=== PATIENT | male | born 1985 | race Caucasian/White ===

== ENCOUNTER 2017-04-10 20:32 | Inpatient (IN) | payer OTHER ==
[2017-04-10 23:16] VITALS: BMI 26.1
--- NOTE | 2017-04-10 23:47 | HP ---
Admission ROS [facility] - [place] [facility] Chief Complaint: I WANT TO GO TO REHAB Allergies/Adverse Reactions: Allergies Allergy/AdvReac Type Severity Reaction Status Date / Time Penicillins Allergy Verified 04/10/17 23:22 History of Present Illness: 31 YEARS OLD MALE WITH LONG HISTORY OF COCAINE NICOTINE DEPENDENCE HAS HIV AND DEPRESSION IS ADMITTED TO REHAB Exam Limitations: No Limitations - Ebola screening Have you traveled outside of the country in the last 21 days: No Have you had contact with anyone from an Ebola affected area: No Have you been sick,other than usual withdrawal symptoms: No Do you have a fever: No - Review of Systems Constitutional: Loss of Appetite, Unintentional Wgt. Loss, Unexplained wgt Loss EENT: reports: Dental Problems (MULTIPLE TEETH MISSING) Respiratory: reports: SOB with Exertion Cardiac: reports: No Symptoms Reported GI: reports: Constipated, Poor Appetite : reports: No Symptoms Reported Musculoskeletal: reports: Back Pain Integumentary: reports: No Symptoms Reported Neuro: reports: No Symptoms reported Endocrine: reports: No Symptoms Reported Hematology: reports: No Symptoms Reported Psychiatric: reports: Judgement Intact, Orientated x3, Anxious Other Systems: Reviewed and Negative Patient History - Patient Medical History Hx Anemia: No Hx Asthma: No Hx Chronic Obstructive Pulmonary Disease (COPD): Yes Hx Cancer: No Hx Cardiac Disorders: No Hx Congestive Heart Failure: No Hx Hypertension: No Hx Hypercholesterolemia: No Hx Pacemaker: No HX Cerebrovascular Accident: No Hx Seizures: No Hx Dementia: No Hx Diabetes: No Hx Gastrointestinal Disorders: No Hx Liver Disease: No Hx Genitourinary Disorders: No Hx Sexually Transmitted Disorders: No Hx Renal Disease (ESRD): No Hx Thyroid Disease: No Hx Human Immunodeficiency Virus (HIV): Yes (2013) Hx Hepatitis C: No Hx Depression: Yes Hx Suicide Attempt: No Hx Bipolar Disorder: No Hx Schizophrenia: No - Patient Surgical History Past Surgical History: Yes Hx Lung Surgery: No Hx Genitourinary Surgery: Yes (5 YEARS OLD) Hx Orthopedic Surgery: Yes (RIGHT KNEE ) Anesthesia Reaction: No - PPD History Previous Implant?: Yes Documented Results: Negative w/o proof Implanted On Prior [facility] Admission?: No PPD to be Administered?: Yes - Smoking Cessation Smoking history: Current every day smoker Have you smoked in the past 12 months: Yes Aproximately how many cigarettes per day: 5 Cigars Per Day: 0 Hx Chewing Tobacco Use: No Initiated information on smoking cessation: Yes 'Breaking Loose' booklet given: 04/10/17 - Substance & Tx. History Hx Alcohol Use: No Hx Substance Use: Yes Substance Use Type: Cocaine Hx Substance Use Treatment: Yes (2017) - Substances Abused Cocaine Route: Inhalation Frequency: Daily Amount used: 10 BAGS Age of first use: 17 Date of Last Use: 04/10/17 Family Disease History - Family Disease History Family Disease History: Other: Father (NO CONTACT) Admission Physical Exam [facility] - Vital Signs Vital Signs: Vital Signs - 24 hr 04/10/17 23:09 Temperature 96.4 F L Pulse Rate 96 H Respiratory 18 Rate Blood Pressure 125/82 - Physical General Appearance: Yes: No Apparent Distress, Appropriately Dressed, Thin HEENTM: Yes: Hearing grossly Normal, Normal ENT Inspection, Normocephalic, Normal Voice Respiratory: Yes: Chest Non-Tender, No Respiratory Distress, No Accessory Muscle Use, Expiration, Hyperresonant Neck: Yes: Supple, Trachea in good position Breast: Yes: Breasts Symetrical Cardiology: Yes: Regular Rhythm, S1, S2, Tachycardia Abdominal: Yes: Normal Bowel Sounds, Non Tender, Soft Genitourinary: Yes: Within Normal Limits Back: Yes: Normal Inspection Musculoskeletal: Yes: full range of Motion, Gait Steady Extremities: Yes: Normal Inspection, Normal Range of Motion, Non-Tender Neurological: Yes: Fully Oriented, Alert, Motor Strength 5/5, Normal Response, Depressed Affect Integumentary: Yes: Warm Lymphatic: Yes: Within Normal Limits - Diagnostic (1) Cocaine dependence, uncomplicated Current Visit: Yes Status: Acute (2) Nicotine dependence Current Visit: Yes Status: Acute Qualifiers: Nicotine product type: cigarettes Substance use status: in withdrawal Qualified Code(s): F17.213 - Nicotine dependence, cigarettes, with withdrawal (3) Weight loss Current Visit: Yes Status: Acute (4) HIV (human immunodeficiency virus infection) Current Visit: Yes Status: Chronic Comment: PATIENT DOES NOT HAVE HIS HIV MEDICATIONS WITH HIM UPON ADMISSION PATIENT AGREES TO CALL HIS PHARMACY FOR DELIVERY Cleared for Admission [facility] - Detox or Rehab [facility] Level of Care: Observation Bed Detox Regimen/Protocol: Not Applicable Claeared for Rehab Admission: Yes [facility] Breath Alcohol Content Breath Alcohol Content: 0 Urine Drug Screen - Results Drug Screen Negative: No Urine Drug Screen Results: WILL-Cocaine Inpatient Rehab Admission - Initial Determination Are CD services needed?: Yes Free of communicable disease: Yes Not in need of hospitalization: Yes - Rehab Admission Criteria Previous failed treatment: Yes Poor recovery environment: Yes Comorbidities: Yes Lacks judgement: No Patient is meeting Inpatient Rehab admission criteria:: Yes
[2017-04-10] MEDS ORDERED: LOPERAMIDE HCL 2 MG CAPSULE PO PRN (23:56)
[2017-04-10] MEDS ORDERED: NICOTINE POLACRILEX 2 MG GUM BC PRN (23:56)
[2017-04-10] MEDS ORDERED: IBUPROFEN 400 MG TABLET (FP) PO PRN (23:56)
[2017-04-10] MEDS ORDERED: MAG HYDROX/AL HYDROX/SIMETH 30 ML UNIT-DOSE CUP PO PRN (23:56)
[2017-04-10] MEDS ORDERED: MAGNESIUM CITRATE 300 ML BOTTLE PO PRN (23:56)
[2017-04-10] MEDS ORDERED: MENTHOL/PHENOL 1 EACH UD MM PRN (23:56)
[2017-04-10] MEDS ORDERED: ACETAMINOPHEN 325 MG TABLET (FP) PO PRN (23:56)
[2017-04-10] MEDS ORDERED: P-EPHED 60MG/TRIPROLIDI 2.5MG TABLET PO PRN (23:56)
[2017-04-10] MEDS ORDERED: guaiFENesin/D-METHORPHAN HB 10 ML UNIT-DOSE CUPS PO PRN (23:56)
[2017-04-10] MEDS ORDERED: MAGNESIUM HYDROX 2400MG/30ML ORAL SUSPENSION 30 ML CUP PO PRN (23:56)
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
[2017-04-11] MEDS ORDERED: PATIENT'S OWN MEDICATION (NON-FORMULARY) (Dolutegravir Sodium 50 MG) PO SCH (10:00)
[2017-04-11] MEDS: EMTRICITABINE 200MG/TENOFOVIR 300MG PO SCH (10:46)
[2017-04-11] MEDS: DOLUTEGRAVIR SODIUM 50 MG TABLET PO SCH (10:46)
[2017-04-11] MEDS: PRENATAL VITAMINS W/ FOLIC ACID TABLET (FP) PO SCH (10:46)
[2017-04-11] MEDS: NICOTINE 14 MG/24 HOURS TOPICAL PATCH TD SCH (10:47)
[2017-04-11 12:29] LABS: HEMOGLOBIN 14.4 GM/dL (11.7-16.9); MCH 31.4 pg (25.7-33.7); MCHC 32.6 g/dl (32.0-35.9); MEAN CELL VOLUME 96.3 fl (80-96); PLATELET COUNT 192 K/MM3 (134-434); RBC 4.57 M/mm3 (4.00-5.60); RDW 13.7 % (11.9-15.9)
[2017-04-11 12:36] LABS: ALBUMIN 3.3 g/dl (3.4-5.0); ANION GAP 7 (8-16); BILIRUBIN,TOTAL 0.4 mg/dL (0.2-1.0); BLOOD UREA NITROGEN 14 mg/dL (7-18); CALCIUM 7.9 mg/dL (8.5-10.1); CHLORIDE 108 mmol/L (98-107); CO2 26 mmol/L (21-32); CREATININE 0.8 mg/dL (0.7-1.3); GLUCOSE,RANDOM 112 mg/dL (74-106); POTASSIUM 4.2 mmol/L (3.5-5.1); SGOT/AST 10 U/L (15-37); SGPT/ALT 22 U/L (12-78); SODIUM 141 mmol/L (136-145); TOT PROT 6.3 g/dl (6.4-8.2)
[2017-04-11 12:37] LABS: ALK PHOS 78 U/L (45-117)
--- NOTE | 2017-04-11 13:32 | EKG ---
Test Reason : Blood Pressure : / mmHG Vent. Rate : 077 BPM Atrial Rate : 077 BPM P-R Int : 154 ms QRS Dur : 084 ms QT Int : 380 ms P-R-T Axes : 069 067 057 degrees QTc Int : 430 ms NORMAL SINUS RHYTHM NORMAL ECG NO PREVIOUS ECGS AVAILABLE Confirmed by JT ROCK, PAVITHRA ([id number]) on 04/11/2017 1:32:11 PM Referred By: Confirmed By:PAVITHRA WATERS MD
[2017-04-11 18:50] LABS: URINE APPEARANCE CLOUDY; URINE BILIRUBIN NEGATIVE (NEGATIVE); URINE BLOOD NEGATIVE (NEGATIVE); URINE COLOR YELLOW; URINE GLUCOSE (UA) NEGATIVE (NEGATIVE); URINE KETONE NEGATIVE (NEGATIVE); URINE LEUK ESTERASE NEGATIVE (NEGATIVE); URINE NITRITE NEGATIVE (NEGATIVE); URINE PROTEIN NEGATIVE (NEGATIVE); URINE UROBILINOGEN NEGATIVE mg/dL (0.2-1.0)
[2017-04-11] MEDS: THIAMINE HCL 100 MG TABLET (FP) PO SCH (22:11)
[2017-04-12] MEDS: NICOTINE 14 MG/24 HOURS TOPICAL PATCH TD SCH (10:37)
[2017-04-12] MEDS: PRENATAL VITAMINS W/ FOLIC ACID TABLET (FP) PO SCH (10:37)
[2017-04-12] MEDS: SERTRALINE HCL 50 MG TABLET (FP) PO SCH (10:37)
[2017-04-12] MEDS: DOLUTEGRAVIR SODIUM 50 MG TABLET PO SCH (10:37)
[2017-04-12] MEDS: EMTRICITABINE 200MG/TENOFOVIR 300MG PO SCH (10:38)
--- NOTE | 2017-04-12 18:01 | PN ---
[facility] Progress Note Note: was called by nurse due to the patient c/o anxiety,vistaril 50 mg po q4hs ordered
[2017-04-12] MEDS ORDERED: hydrOXYzine PAMOATE 50 MG CAPSULE (FP) PO PRN (18:02)
[2017-04-12] MEDS: hydrOXYzine PAMOATE 50 MG CAPSULE (FP) PO PRN (18:09)
[2017-04-12] MEDS: THIAMINE HCL 100 MG TABLET (FP) PO SCH (22:08)
[2017-04-13] MEDS: EMTRICITABINE 200MG/TENOFOVIR 300MG PO SCH (10:13)
[2017-04-13] MEDS: DOLUTEGRAVIR SODIUM 50 MG TABLET PO SCH (10:13)
[2017-04-13] MEDS: PRENATAL VITAMINS W/ FOLIC ACID TABLET (FP) PO SCH (10:13)
[2017-04-13] MEDS: SERTRALINE HCL 50 MG TABLET (FP) PO SCH (11:13)
[2017-04-13] MEDS: hydrOXYzine PAMOATE 50 MG CAPSULE (FP) PO PRN ×2 (11:15→22:12)
[2017-04-13] MEDS: NICOTINE 14 MG/24 HOURS TOPICAL PATCH TD SCH (11:18)
[2017-04-13] MEDS: THIAMINE HCL 100 MG TABLET (FP) PO SCH (22:12)
[2017-04-14] MEDS: EMTRICITABINE 200MG/TENOFOVIR 300MG PO SCH (10:23)
[2017-04-14] MEDS: DOLUTEGRAVIR SODIUM 50 MG TABLET PO SCH (10:23)
[2017-04-14] MEDS: NICOTINE 14 MG/24 HOURS TOPICAL PATCH TD SCH (10:23)
[2017-04-14] MEDS: PRENATAL VITAMINS W/ FOLIC ACID TABLET (FP) PO SCH (10:23)
[2017-04-14] MEDS: hydrOXYzine PAMOATE 50 MG CAPSULE (FP) PO PRN ×2 (10:25→21:04)
[2017-04-14] MEDS: SERTRALINE HCL 50 MG TABLET (FP) PO SCH (10:51)
[2017-04-14] MEDS: THIAMINE HCL 100 MG TABLET (FP) PO SCH (21:04)
[2017-04-15] MEDS: SERTRALINE HCL 50 MG TABLET (FP) PO SCH (10:16)
[2017-04-15] MEDS: DOLUTEGRAVIR SODIUM 50 MG TABLET PO SCH (10:16)
[2017-04-15] MEDS: EMTRICITABINE 200MG/TENOFOVIR 300MG PO SCH (10:16)
[2017-04-15] MEDS: PRENATAL VITAMINS W/ FOLIC ACID TABLET (FP) PO SCH (10:16)
[2017-04-15] MEDS: hydrOXYzine PAMOATE 50 MG CAPSULE (FP) PO PRN ×2 (10:17→21:20)
[2017-04-15] MEDS: NICOTINE 14 MG/24 HOURS TOPICAL PATCH TD SCH (10:17)
[2017-04-15] MEDS: THIAMINE HCL 100 MG TABLET (FP) PO SCH (21:20)
[2017-04-16] MEDS: NICOTINE 14 MG/24 HOURS TOPICAL PATCH TD SCH (10:15)
[2017-04-16] MEDS: SERTRALINE HCL 50 MG TABLET (FP) PO SCH (10:15)
[2017-04-16] MEDS: PRENATAL VITAMINS W/ FOLIC ACID TABLET (FP) PO SCH (10:16)
[2017-04-16] MEDS: EMTRICITABINE 200MG/TENOFOVIR 300MG PO SCH (10:16)
[2017-04-16] MEDS: DOLUTEGRAVIR SODIUM 50 MG TABLET PO SCH (10:16)
[2017-04-16] MEDS: hydrOXYzine PAMOATE 50 MG CAPSULE (FP) PO PRN ×2 (10:17→21:35)
[2017-04-16] MEDS: SELENIUM SULFIDE 2.5% LOTION 4 OZ. TP SCH (16:30)
[2017-04-16] MEDS: THIAMINE HCL 100 MG TABLET (FP) PO SCH (21:35)
[2017-04-17] MEDS: PRENATAL VITAMINS W/ FOLIC ACID TABLET (FP) PO SCH (10:32)
[2017-04-17] MEDS: SERTRALINE HCL 50 MG TABLET (FP) PO SCH (10:32)
[2017-04-17] MEDS: SELENIUM SULFIDE 2.5% LOTION 4 OZ. TP SCH (10:33)
[2017-04-17] MEDS: DOLUTEGRAVIR SODIUM 50 MG TABLET PO SCH (10:33)
[2017-04-17] MEDS: NICOTINE 14 MG/24 HOURS TOPICAL PATCH TD SCH (10:34)
[2017-04-17] MEDS: EMTRICITABINE 200MG/TENOFOVIR 300MG PO SCH (10:35)
[2017-04-17] MEDS: THIAMINE HCL 100 MG TABLET (FP) PO SCH (22:12)
[2017-04-17] MEDS: hydrOXYzine PAMOATE 50 MG CAPSULE (FP) PO PRN (22:13)
[2017-04-18] MEDS ORDERED: PT OWN MED DRAWER 7, Y5N ONE ×2 (07:34→10:21)
[2017-04-18] MEDS: SERTRALINE HCL 50 MG TABLET (FP) PO SCH (10:20)
[2017-04-18] MEDS: SELENIUM SULFIDE 2.5% LOTION 4 OZ. TP SCH (10:20)
[2017-04-18] MEDS: PRENATAL VITAMINS W/ FOLIC ACID TABLET (FP) PO SCH (10:20)
[2017-04-18] MEDS: NICOTINE 14 MG/24 HOURS TOPICAL PATCH TD SCH (10:20)
[2017-04-18] MEDS: EMTRICITABINE 200MG/TENOFOVIR 300MG PO SCH (10:21)
[2017-04-18] MEDS: DOLUTEGRAVIR SODIUM 50 MG TABLET PO SCH (10:21)
[2017-04-18] MEDS: hydrOXYzine PAMOATE 50 MG CAPSULE (FP) PO PRN ×2 (10:24→21:14)
[2017-04-18] MEDS: CLOTRIMAZOLE/BETAMET DIPROP TOPICAL CREAM 45 GM TUBE TP SCH (21:14)
[2017-04-18] MEDS: THIAMINE HCL 100 MG TABLET (FP) PO SCH (21:14)
[2017-04-19] MEDS ORDERED: PT OWN MED DRAWER 7, Y5N ONE ×2 (08:41→09:05)
[2017-04-19] MEDS: SERTRALINE HCL 50 MG TABLET (FP) PO SCH (10:25)
[2017-04-19] MEDS: PRENATAL VITAMINS W/ FOLIC ACID TABLET (FP) PO SCH (10:25)
[2017-04-19] MEDS: DOLUTEGRAVIR SODIUM 50 MG TABLET PO SCH (10:26)
[2017-04-19] MEDS: EMTRICITABINE 200MG/TENOFOVIR 300MG PO SCH (10:26)
[2017-04-19] MEDS: hydrOXYzine PAMOATE 50 MG CAPSULE (FP) PO PRN ×2 (10:26→21:33)
[2017-04-19] MEDS: SELENIUM SULFIDE 2.5% LOTION 4 OZ. TP SCH (10:27)
[2017-04-19] MEDS: NICOTINE 14 MG/24 HOURS TOPICAL PATCH TD SCH (10:28)
[2017-04-19] MEDS: CLOTRIMAZOLE/BETAMET DIPROP TOPICAL CREAM 45 GM TUBE TP SCH ×2 (10:28→21:33)
[2017-04-19] MEDS: THIAMINE HCL 100 MG TABLET (FP) PO SCH (21:33)
[2017-04-20] MEDS: PRENATAL VITAMINS W/ FOLIC ACID TABLET (FP) PO SCH (10:14)
[2017-04-20] MEDS: SERTRALINE HCL 50 MG TABLET (FP) PO SCH (10:14)
[2017-04-20] MEDS: hydrOXYzine PAMOATE 50 MG CAPSULE (FP) PO PRN ×2 (10:16→21:28)
[2017-04-20] MEDS: DOLUTEGRAVIR SODIUM 50 MG TABLET PO SCH (10:17)
[2017-04-20] MEDS: EMTRICITABINE 200MG/TENOFOVIR 300MG PO SCH (10:17)
[2017-04-20] MEDS: SELENIUM SULFIDE 2.5% LOTION 4 OZ. TP SCH (10:18)
[2017-04-20] MEDS: NICOTINE 14 MG/24 HOURS TOPICAL PATCH TD SCH (10:18)
[2017-04-20] MEDS ORDERED: PT OWN MED DRAWER 7, Y5N ONE (10:18)
[2017-04-20] MEDS: CLOTRIMAZOLE/BETAMET DIPROP TOPICAL CREAM 45 GM TUBE TP SCH ×2 (10:19→22:21)
[2017-04-20] MEDS ORDERED: CLOTRIMAZOLE/BETAMET DIPROP 15 GM TUBE TP SCH (12:30)
[2017-04-20] MEDS: THIAMINE HCL 100 MG TABLET (FP) PO SCH (21:28)
[2017-04-21] MEDS ORDERED: PT OWN MED DRAWER 7, Y5N ONE ×3 (07:00→10:16)
[2017-04-21] MEDS: NICOTINE 14 MG/24 HOURS TOPICAL PATCH TD SCH (10:13)
[2017-04-21] MEDS: PRENATAL VITAMINS W/ FOLIC ACID TABLET (FP) PO SCH (10:13)
[2017-04-21] MEDS: EMTRICITABINE 200MG/TENOFOVIR 300MG PO SCH (10:13)
[2017-04-21] MEDS: DOLUTEGRAVIR SODIUM 50 MG TABLET PO SCH (10:13)
[2017-04-21] MEDS: SERTRALINE HCL 50 MG TABLET (FP) PO SCH (10:13)
[2017-04-21] MEDS: CLOTRIMAZOLE/BETAMET DIPROP TOPICAL CREAM 45 GM TUBE TP SCH ×2 (10:13→22:00)
[2017-04-21] MEDS: hydrOXYzine PAMOATE 50 MG CAPSULE (FP) PO PRN ×2 (10:15→21:26)
[2017-04-21] MEDS: SELENIUM SULFIDE 2.5% LOTION 4 OZ. TP SCH (10:15)
[2017-04-21] MEDS: THIAMINE HCL 100 MG TABLET (FP) PO SCH (21:26)
[2017-04-22] MEDS ORDERED: PT OWN MED DRAWER 7, Y5N ONE ×2 (08:01→08:50)
[2017-04-22] MEDS: CLOTRIMAZOLE/BETAMET DIPROP TOPICAL CREAM 45 GM TUBE TP SCH ×2 (10:00→22:08)
[2017-04-22] MEDS: SELENIUM SULFIDE 2.5% LOTION 4 OZ. TP SCH (10:00)
[2017-04-22] MEDS: PRENATAL VITAMINS W/ FOLIC ACID TABLET (FP) PO SCH (10:00)
[2017-04-22] MEDS: SERTRALINE HCL 50 MG TABLET (FP) PO SCH (10:00)
[2017-04-22] MEDS: DOLUTEGRAVIR SODIUM 50 MG TABLET PO SCH (10:01)
[2017-04-22] MEDS: EMTRICITABINE 200MG/TENOFOVIR 300MG PO SCH (10:01)
[2017-04-22] MEDS: NICOTINE 14 MG/24 HOURS TOPICAL PATCH TD SCH (10:01)
[2017-04-22] MEDS: hydrOXYzine PAMOATE 50 MG CAPSULE (FP) PO PRN ×2 (15:42→21:29)
[2017-04-22] MEDS: THIAMINE HCL 100 MG TABLET (FP) PO SCH (21:29)
[2017-04-23 07:04] VITALS: TEMP 97.4
[2017-04-23] MEDS: DOLUTEGRAVIR SODIUM 50 MG TABLET PO SCH (09:44)
[2017-04-23] MEDS: SERTRALINE HCL 50 MG TABLET (FP) PO SCH (09:44)
[2017-04-23] MEDS: CLOTRIMAZOLE/BETAMET DIPROP TOPICAL CREAM 45 GM TUBE TP SCH (09:44)
[2017-04-23] MEDS: PRENATAL VITAMINS W/ FOLIC ACID TABLET (FP) PO SCH (09:44)
[2017-04-23] MEDS: SELENIUM SULFIDE 2.5% LOTION 4 OZ. TP SCH (09:45)
[2017-04-23] MEDS: EMTRICITABINE 200MG/TENOFOVIR 300MG PO SCH (09:45)
[2017-04-23] MEDS: NICOTINE 14 MG/24 HOURS TOPICAL PATCH TD SCH (09:45)
[2017-04-23] MEDS: hydrOXYzine PAMOATE 50 MG CAPSULE (FP) PO PRN (11:33)
[2017-04-24 06:46] VITALS: BP 134/69; PULSE 71
--- NOTE | 2017-04-24 09:52 | PN ---
Psychiatric Progress Note Vital Signs: Vital Signs Period Temp Pulse Resp BP Sys/Simpson Pulse Ox Last 24 Hr 97.4 F 71 18-18 134/69 Date of Session: 04/24/17 Chief Complaint:: Discharge Note HPI: Patient addressing Cocaine Dependence comorbid with Nicotine Dependence and Substance-induced Mood Disorder Current Medications: Active Medications Generic Name Dose Route Start Last Admin Trade Name Freq PRN Reason Stop Dose Admin Acetaminophen 650 mg 04/10/17 23:56 Tylenol - PO Q4H PRN PAIN Al Hydroxide/Mg Hydroxide 30 ml 04/10/17 23:56 04/16/17 23:54 Mylanta Oral Suspension - PO 30 ml Q6H PRN Administration DYSPEPSIA Clotrimazole 1 applic 04/18/17 22:00 04/23/17 09:44 Lotrisone Cream (Large Tube) - TP 1 applic BID GUILLERMINA Administration Emtricitabine/Tenofovir 1 tab 04/11/17 10:00 04/23/17 09:45 Truvada PO 1 tab DAILY GUILLERMINA Administration Eucalyptus/Menthol/Phenol/Sorbitol 1 each 04/10/17 23:56 Cepastat Lozenge - MM Q4H PRN SORE THROAT Guaifenesin 10 ml 04/10/17 23:56 Robitussin Dm - PO Q6H PRN COUGH Hydroxyzine Pamoate 50 mg 04/12/17 18:03 04/23/17 11:33 Vistaril - PO 50 mg Q4H PRN Administration ANXIETY Ibuprofen 400 mg 04/10/17 23:56 Motrin - PO Q6H PRN SEVERE PAIN Loperamide HCl 4 mg 04/10/17 23:56 Imodium - PO Q6H PRN DIARRHEA Magnesium Citrate 300 ml 04/10/17 23:56 Citroma - PO Q48H PRN CONSTIPATION Magnesium Hydroxide 30 ml 04/10/17 23:56 Milk Of Magnesia - PO DAILY PRN CONSTIPATION Nicotine 14 mg 04/11/17 10:00 04/23/17 09:45 Nicoderm Patch - TD Not Given DAILY GUILLERMINA Nicotine Polacrilex 2 mg 04/10/17 23:56 Nicorette Gum - BC Q2H PRN NICOTINE REPLACEMENT RX Multivit/Folic Acid/Iron 1 tab 04/11/17 10:00 04/23/17 09:44 Vitamins ([facility]) - PO 1 tab DAILY GUILLERMINA Administration Pseudoephedrine/Triprolidine 1 combo 04/10/17 23:56 Actifed - PO TID PRN NASAL CONGESTION Sertraline HCl 50 mg 04/12/17 10:00 04/23/17 09:44 Zoloft - PO 50 mg DAILY GUILLERMINA Administration Thiamine HCl 100 mg 04/11/17 22:00 04/22/17 21:29 Vitamin B1 - PO 100 mg HS GUILLERMINA Administration Current Side Effect: No Lab tests ordered: Yes Lab tests reviewed: Yes Provider note:: Patient has completed this program today. He has met his treatment goals and will continue to address his issues in [place] [facility] 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 He responded well to Zoloft 50 mg po daily. Script for 30 day supply of medication is electronically transmitted to [facility] at [address] [place] [address]. He is stable for discharge today Total face to face time:: 35 Mental Status Exam - Mental Status Exam Alert and Oriented to: Time, Place, Person Cognitive Function: Fair Patient Appearance: Well Groomed Mood: Hopeful, Euthymic Affect: Appropriate Patient Behavior: Cooperative Speech Pattern: Clear Voice Loudness: Normal Thought Process: Intact, Goal Oriented Thought Disorder: Not Present Hallucinations: Denies Suicidal Ideation: Denies Homicidal Ideation: Denies Insight/Judgement: Fair Sleep: Fair Appetite: Good Muscle strength/Tone: Normal Gait/Station: Normal Psychiatric Treatment Plan - Problem List (1) Cocaine dependence Current Visit: Yes (2) Nicotine dependence Current Visit: Yes Qualifiers: Nicotine product type: cigarettes Substance use status: in withdrawal Qualified Code(s): F17.213 - Nicotine dependence, cigarettes, with withdrawal (3) Substance induced mood disorder Current Visit: Yes (4) Bipolar II disorder Current Visit: Yes (5) HIV (human immunodeficiency virus infection) Current Visit: Yes Comment: PATIENT DOES NOT HAVE HIS HIV MEDICATIONS WITH HIM UPON ADMISSION PATIENT AGREES TO CALL HIS PHARMACY FOR DELIVERY Initial treatment plan: Patient is discharged today and referred [place] [facility] [place]
[2017-04-24] MEDS: PRENATAL VITAMINS W/ FOLIC ACID TABLET (FP) PO SCH (09:55)
[2017-04-24] MEDS: EMTRICITABINE 200MG/TENOFOVIR 300MG PO SCH (09:55)
[2017-04-24] MEDS: DOLUTEGRAVIR SODIUM 50 MG TABLET PO SCH (09:55)
[2017-04-24] MEDS: SERTRALINE HCL 50 MG TABLET (FP) PO SCH (09:55)
[2017-04-24] MEDS: NICOTINE 14 MG/24 HOURS TOPICAL PATCH TD SCH (09:58)
[2017-04-24] MEDS: CLOTRIMAZOLE/BETAMET DIPROP TOPICAL CREAM 45 GM TUBE TP SCH (09:58)
== END 2017-04-24 10:10 | disposition home or self-care (01) | DRG 772 ==
LOC: YASAS 20:32 → Y3W 23:08
PROVIDERS: ADMIT Psychiatry & Neurology Psychiatry; ATTEND Psychiatry & Neurology Psychiatry
PROC: HZ42ZZZ Group Counseling for Substance Abuse Treatment, Cognitive-Behavioral (ICD-10-PCS; principal; 2017-04-10)
DX: F14.20 Cocaine dependence, uncomplicated (principal); F17.213 Nicotine dependence, cigarettes, with withdrawal; F19.24 Other psychoactive substance dependence with psychoactive substance-induced mood disorder; F31.81 Bipolar II disorder; Z21 Asymptomatic human immunodeficiency virus [HIV] infection status; R00.0 Tachycardia, unspecified; J44.9 Chronic obstructive pulmonary disease, unspecified; Z88.0 Allergy status to penicillin; Z87.898 Personal history of other specified conditions
CPT/HCPCS: 36415; 80053; 81003; 85027; 86593; 93005; 93010

== ENCOUNTER 2017-05-17 06:30 | Emergency (ER) | payer OTHER ==
[2017-05-17 06:38] VITALS: BP 127/77; PULSE 93; TEMP 98.6; BMI 26.6
--- NOTE | 2017-05-17 07:33 | PDOC ---
Attending Attestation - Resident Resident Name: BonitaSammi - ED Attending Attestation I have performed the following: I have examined & evaluated the patient, The case was reviewed & discussed with the resident, I agree w/resident's findings & plan, Exceptions are as noted - HPI HPI: 05/17/17 08:12 31 yo. M hx HIV (CD4 > 1000 in 2017, on Trimeq) and PSA presents to our ED requesting admission to detox from etoh. Pt was admitted at [facility] this morning, left at some point, drank 1 pint of vodka and snorted cocaine, then attempted to return this morning. Pt was belligerent per [facility] staff and thus he was not allowed to enter [facility] and EMS brought him here. Pt currently denies cp, sob, f/c, n/v/d, abd pain, weakness/numbness. He states " i want to quit this stuff." - Physicial Exam PE: 05/17/17 08:15 GENERAL: Awake, intoxicated, no acute distress HEAD: No signs of trauma EYES: PERRLA, EOMI, sclera anicteric, conjunctiva clear NECK: Normal ROM, supple, no lymphadenopathy, JVD, or masses LUNGS: Breath sounds equal, clear to auscultation bilaterally. No wheezes, and no crackles HEART: Regular rate and rhythm, normal S1 and S2, no murmurs, rubs or gallops ABDOMEN: Soft, nontender, normoactive bowel sounds. No guarding, no rebound. No masses EXTREMITIES: Normal range of motion, no edema. No clubbing or cyanosis. No cords, erythema, or tenderness. 2+ peripheral pulses NEUROLOGICAL: slurred speech, cranial nerves grossly intact SKIN: Warm, Dry, normal turgor, no rashes or lesions noted. - Medical Decision Making 05/17/17 08:16 Pt requests detox from etoh/cocaine. No longer accepted at [facility], brought here [facility] was called, stated to send pt over but needs medical clearance Will obtain labs, if pt MC, and more clinically sober, will DC to [facility] 05/17/17 11:51 Patient's now clinically sober and ambulating in the ED with a steady gait. Patient is upset that we will not be able to arrange transport for him to [facility] and shouting at staff stating "I have medicaid." Security called to the bedside. Discussed with our major case detective Lydia regarding transport, we will not be able to arrange transportation to the [place] for detox, as patient has resources to get to the [place] on his own. Explained the latter to the patient who requests dc home. Pt hemodynamically and clinically stable for DC. I discussed the physical exam findings, ancillary test results and final diagnoses with the patient. I answered all of the patient's questions. The patient was satisfied with the care received and felt comfortable with the discharge plan and treatment plan. The patient will call their primary care physician within 24 hours to arrange follow-up and will return to the Emergency Department with any new, persistent or worsening symptoms.
--- NOTE | 2017-05-17 07:45 | PDOC ---
History of Present Illness - General Chief Complaint: Substance Abuse Stated Complaint: SUBSTANCE ABUSE Time Seen by Provider: 05/17/17 07:07 History Source: Patient - History of Present Illness Initial Comments: 05/17/17 07:32 31 y.o. male PMH of HIV (CD4 > 1000 in 2017, on Trimeq) and Substance Abuse presents to our ED this morning requesting admission to Detox @ [facility]. Patient states he drank 1 pint of vodka this morning and last used cocaine yesterday afternoon. Patient denies any h/o DT's and states he has been drinking for the past 15 years. Patient receives his primary and HIV care in the [facility] Allergy: Penicillin Surgery: Exploratory Laparotomy @ age 5 Past History - Past Medical History Allergies/Adverse Reactions: Allergies Allergy/AdvReac Type Severity Reaction Status Date / Time Penicillins Allergy Verified 05/17/17 06:36 Home Medications: Ambulatory Orders Dolutegravir Sodium [Tivicay] 50 mg PO DAILY #30 tablet 04/24/17 Emtricitabine/Tenofovir [Truvada -] 1 tab PO DAILY #30 tablet 04/24/17 Sertraline HCl [Zoloft -] 50 mg PO DAILY #30 tablet 04/24/17 Anemia: No Asthma: No Cancer: No Cardiac Disorders: No CVA: No COPD: No CHF: No Dementia: No Diabetes: No GI Disorders: No Disorders: No HTN: No Hypercholesterolemia: No Kidney Stones: No Liver Disease: No Seizures: No Thyroid Disease: No - Surgical History Abdominal Surgery: No Appendectomy: No Cardiac Surgery: No Cholecystectomy: No Lung Surgery: No Neurologic Surgery: No Orthopedic Surgery: Yes (RIGHT KNEE ) - Reproductive History Testicular Surgery: No - Suicide/Smoking/Psychosocial Hx Smoking History: Current every day smoker Have you smoked in the past 12 months: Yes Number of Cigarettes Smoked Daily: 5 Cigars Per Day: 0 Information on smoking cessation initiated: No 'Breaking Loose' booklet given: 05/16/17 Hx Alcohol Use: Yes Drug/Substance Use Hx: Yes Substance Use Type: Alcohol, Cocaine Hx Substance [facility] Review of Systems - Review of Systems Constitutional: No: Chills, Fever HEENTM: No: Recent change in vision Respiratory: No: Shortness of Breath Cardiac (ROS): No: Chest Pain ABD/GI: No: Constipated, Diarrhea, Nausea, Vomiting *Physical Exam - Vital Signs Last Vital Signs Temp Pulse Resp BP Pulse Ox 98.6 F 93 H 14 127/77 98 05/17/17 06:36 05/17/17 06:36 05/17/17 06:36 05/17/17 06:36 05/17/17 06:36 - Physical Exam Comments: 05/17/17 18:36 GENERAL: Awake, intoxicated, no acute distress HEAD: No signs of trauma EYES: EOMI, sclera anicteric, B/L conjunctival injection NECK: Normal ROM, supple, no lymphadenopathy, JVD, or masses LUNGS: Breath sounds equal, clear to auscultation bilaterally. No wheezes, and no crackles HEART: Regular rate and rhythm, normal S1 and S2, no murmurs, rubs or gallops ABDOMEN: Soft, nontender, normoactive bowel sounds. No guarding, no rebound. No masses EXTREMITIES: Normal range of motion, no edema. No clubbing or cyanosis. NEUROLOGICAL: slurred speech, cranial nerves grossly intact, non-ataxic gait SKIN: Warm, Dry, normal turgor, no rashes or lesions noted. ED Treatment Course - LABORATORY CBC & Chemistry Diagram: 05/17/17 07:40 05/17/17 07:40 - RADIOLOGY Radiology Studies Ordered: Category Date Time Status CHEST PA & LAT [RAD] Stat Radiology 05/17/17 07:15 Ordered Medical Decision Making - Medical Decision Making 05/17/17 08:01 31 y.o. male with a PMH of HIV and Substance Abuse who presents seeking admission to alcohol detox program. On PE patient Spoke with Mike @ [facility] - patient was admitted yesterday to their facility however disappeared and then came back this a.m. seeking readmission. Patient became belligerent and is banned from [facility]. Will call [facility] for admission. CBC, CMP, Urine Toxicology, EKG, CXR pending. 05/17/17 08:06 Case d/w [facility] Inpatient Detoxification- patient can report to [address] [place] [address] for evaluation. 05/17/17 09:34 CXR shows no infiltrate/consolidation or cardiomegaly. CBC shows no anemia, CMP negative for electrolyte derangement. Patient ambulatory, tolerating PO intake. Will discharge with copies of labs *DC/Admit/Observation/Transfer Diagnosis at time of Disposition: Substance abuse - Discharge Dispostion Disposition: HOME Condition at time of disposition: Good Admit: No - Referrals Referrals: ON STAFF,NOT [Primary Care Provider] - - Patient Instructions Additional Instructions: Please report to [facility], [address] [place] [address]. [place] [address] for evaluation. Return to the Emergency Department for any new/ worsening/concerning symptoms. - Post Discharge Activity
[2017-05-17 07:57] LABS: BASO % 0.7 % (0-2.0); EOS % 2.4 % (0-4.5); HEMATOCRIT 46.2 % (35.4-49); HEMOGLOBIN 15.6 GM/dL (11.7-16.9); LYMPH % 25.1 % (8-40); MCH 31.7 pg (25.7-33.7); MCHC 33.7 g/dl (32.0-35.9); MEAN CELL VOLUME 94.1 fl (80-96); MEAN PLT VOLUME 8.3 fl (7.5-11.1); NEUT % 62.8 % (42.8-82.8); PLATELET COUNT 241 K/MM3 (134-434); RDW 14.3 % (11.9-15.9)
[2017-05-17 08:37] LABS: ALBUMIN 4.1 g/dl (3.4-5.0); ALK PHOS 76 U/L (45-117); ANION GAP 8 (8-16); BILIRUBIN,TOTAL 0.2 mg/dL (0.2-1.0); BLOOD UREA NITROGEN 11 mg/dL (7-18); CALCIUM 8.5 mg/dL (8.5-10.1); CHLORIDE 106 mmol/L (98-107); CO2 29 mmol/L (21-32); CREATININE 0.7 mg/dL (0.7-1.3); GLUCOSE,RANDOM 116 mg/dL (74-106); POTASSIUM 3.9 mmol/L (3.5-5.1); SGOT/AST 13 U/L (15-37); SGPT/ALT 22 U/L (12-78); SODIUM 143 mmol/L (136-145); TOT PROT 7.4 g/dl (6.4-8.2)
[2017-05-17 10:29] LABS: COCAINE, UR POSITIVE ng/ml (CUTOFF=300); OPIATES, URI NEGATIVE ng/ml (CUTOFF=300); PHENCYCLIDINE,URINE NEGATIVE ng/ml (CUTOFF=25); URINE AMPHETAMINES NEGATIVE ng/ml (CUTOFF=500); URINE BARBITURATES NEGATIVE ng/ml (CUTOFF=200); URINE BENZODIAZEPINES POSITIVE ng/ml (CUTOFF=200)
[2017-05-17 10:30] LABS: METHADONE, UR NEGATIVE ng/ml (CUTOFF=300)
--- NOTE | 2017-05-17 15:34 | EKG ---
Test Reason : Blood Pressure : / mmHG Vent. Rate : 095 BPM Atrial Rate : 095 BPM P-R Int : 000 ms QRS Dur : 084 ms QT Int : 362 ms P-R-T Axes : 000 075 058 degrees QTc Int : 454 ms NORMAL SINUS RHYTHM WITH SINUS ARRHYTHMIA NORMAL ECG WHEN COMPARED WITH ECG OF 11-APR-2017 04:00, NO SIGNIFICANT CHANGE WAS FOUND Confirmed by DIVYA HARRINGTON MD ([id number]) on 05/17/2017 3:34:35 PM Referred By: Confirmed By:DIVYA HARRINGTON MD
== END 2017-05-17 10:18 | disposition home or self-care (01) ==
LOC: JER 06:30
DX: F10.10 Alcohol abuse, uncomplicated (principal); F14.10 Cocaine abuse, uncomplicated; F17.210 Nicotine dependence, cigarettes, uncomplicated; Z21 Asymptomatic human immunodeficiency virus [HIV] infection status
CPT/HCPCS: 36415; 71046-TC-FY; 80053; 80307; 85025; 93005; 93010; 99283-25

== ENCOUNTER 2017-06-10 09:42 | Inpatient (IN) | payer OTHER ==
[2017-06-10 11:05] VITALS: BMI 27.3
--- NOTE | 2017-06-10 12:32 | HP ---
CIWA Score - CIWA Score Nausea/Vomitin Muscle Tremors: 3 Anxiety: 3 Agitation: 3 Paroxysmal Sweats: 2 Orientation: 0-Oriented Tacttile Disturbances: 2-Mild Itch/Numbness/Burn Auditory Disturbances: 2-Mild Harshness/Frighten Visual Disturbances: 1-Very Mild Sensitivity Headache: 2-Mild CIWA-Ar Total Score: 21 Admission ROS BHS - HPI Chief Complaint: I NEED HELP TO STOP DRINKING ALCOHOL,COCAINE,MARIJUANA,METHAMPHETAMINE Allergies/Adverse Reactions: Allergies Allergy/AdvReac Type Severity Reaction Status Date / Time Penicillins Allergy Rash Verified 06/10/17 12:31 History of Present Illness: THIS 31 YEARS OLD MALE WITH ALCOHOL,COCAINE,MARIJUANA AND METHAMPHETAMINE DEPENDENCE,WITHDRAWAL SYMPTOM,SEEKING DETOX LAST DETOX 05/27 PROMEZA HISTORY OF HIV IN 2013 DEPRESSION NICOTINE DEPENDENCE LONGEST PERIOD OF SOBRIETY 1 YEAR - Ebola screening Have you traveled outside of the country in the last 21 days: No (N) Have you had contact with anyone from an Ebola affected area: No Have you been sick,other than usual withdrawal symptoms: No Do you have a fever: No - Review of Systems Constitutional: Loss of Appetite, Malaise, Night Sweats, Changes in sleep, Weakness, Unintentional Wgt. Loss EENT: reports: Nose Congestion Respiratory: reports: No Symptoms reported Cardiac: reports: No Symptoms Reported GI: reports: Diarrhea, Nausea, Poor Appetite, Vomiting, Abdominal cramping, Other (SURGERY FOR BLUNT TRAUMA OF ABDOMEN AT AGE OF 5 YEARS) : reports: No Symptoms Reported Musculoskeletal: reports: Back Pain, Muscle Pain Integumentary: reports: Dryness Neuro: reports: Headache, Tremors Endocrine: reports: No Symptoms Reported Hematology: reports: No Symptoms Reported, Other (HIV) Psychiatric: reports: No Sypmtoms Reported, Orientated x3, Anxious, Depressed Patient History - Patient Medical History Hx Anemia: No Hx Asthma: No Hx Chronic Obstructive Pulmonary Disease (COPD): No Hx Cancer: No Hx Cardiac Disorders: No Hx Congestive Heart Failure: No Hx Hypertension: No Hx Hypercholesterolemia: No Hx Pacemaker: No HX Cerebrovascular Accident: No Hx Seizures: No Hx Dementia: No Hx Diabetes: No Hx Gastrointestinal Disorders: No Hx Liver Disease: No Hx Genitourinary Disorders: No Hx Sexually Transmitted Disorders: Yes (HIV SINCE 2013) Hx Renal Disease (ESRD): No Hx Thyroid Disease: No Hx Human Immunodeficiency Virus (HIV): Yes (2013 SINCE ON MED) Hx Hepatitis C: No Hx Depression: Yes (ANXIETY) Hx Suicide Attempt: No Hx Bipolar Disorder: No Hx Schizophrenia: No Other Medical History: NO SUICIDAL,NO HOMICIDAL - Patient Surgical History Past Surgical History: Yes Hx Neurologic Surgery: No Hx Cataract Extraction: No Hx Cardiac Surgery: No Hx Lung Surgery: No Hx Breast Surgery: No Hx Breast Biopsy: No Hx Abdominal Surgery: No Hx Appendectomy: No Hx Cholecystectomy: No Hx Genitourinary Surgery: Yes (5 YEARS OLD) Hx Section: No Hx Orthopedic Surgery: Yes (RIGHT KNEE ) Other Surgical History: BLUNT TRAUMA OF ABDOMEN AT AGE OF 5 YEARS Anesthesia Reaction: No - PPD History Previous Implant?: Yes Date: 04/13/17 Results: 0 MM PPD to be Administered?: No - Smoking Cessation Smoking history: Current every day smoker Have you smoked in the past 12 months: Yes Aproximately how many cigarettes per day: 7 Cigars Per Day: 0 Hx Chewing Tobacco Use: No Initiated information on smoking cessation: Yes 'Breaking Loose' booklet given: 06/10/17 - Substance & Tx. History Hx Alcohol Use: Yes Hx Substance Use: Yes Substance Use Type: Alcohol, Cocaine, Marijuana - Substances Abused Crack Route: Smoking Frequency: Daily Amount used: $40 Age of first use: 17 Date of Last Use: 06/08/17 Cocaine Route: Inhalation Frequency: 1-2 times per week Amount used: 1gram Age of first use: 20 Date of Last Use: 06/03/17 Methamphetamine Route: Oral Frequency: 1-3 times last 30 days Amount used: $20 Age of first use: 16 Date of Last Use: 05/20/17 etoh Route: Oral Frequency: Daily Amount used: 1/4 vodka, 2Beer Age of first use: 10 Date of Last Use: 06/09/17 thc Route: Smoking Frequency: 3-6 times per week Amount used: $10 Age of first use: 12 Date of Last Use: 06/08/17 Family Disease History - Family Disease History Family Disease History: Other: Father (NO CONTACT) Admission Physical Exam BHS - Vital Signs Vital Signs: Vital Signs - 24 hr 06/10/17 11:02 Temperature 97.0 F L Pulse Rate 92 H Respiratory 20 Rate Blood Pressure 158/92 - Physical General Appearance: Yes: Moderate Distress, Tremorous, Irritable, Sweating, Anxious HEENTM: Yes: Normal ENT Inspection, WENDI, Pharynx Normal, Other (PSORIASIS OF SCALP) Respiratory: Yes: Lungs Clear, Normal Breath Sounds, No Respiratory Distress Neck: Yes: Within Normal Limits, Supple, Trachea in good position Breast: Yes: Within Normal Limits Cardiology: Yes: Within Normal Limits, Regular Rhythm, Regular Rate, S1, S2 Abdominal: Yes: Within Normal Limits, Normal Bowel Sounds, Non Tender, Flat, Soft, Surgical Scar Genitourinary: Yes: Within Normal Limits Back: Yes: Normal Inspection, Muscle Spasm Musculoskeletal: Yes: full range of Motion, Back pain, Muscle Pain Extremities: Yes: Within Normal Limits, Normal Range of Motion, Tremors Neurological: Yes: 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, Fully Oriented, Alert, Motor Strength 5/5 Integumentary: Yes: Dry Lymphatic: Yes: Within Normal Limits - Diagnostic (1) Alcohol dependence with uncomplicated withdrawal Current Visit: No Status: Acute (2) Cocaine dependence, uncomplicated Current Visit: No Status: Acute (3) Nicotine dependence Current Visit: No Status: Acute Qualifiers: Nicotine product type: cigarettes Substance use status: in withdrawal Qualified Code(s): F17.213 - Nicotine dependence, cigarettes, with withdrawal (4) Substance induced mood disorder Current Visit: No Status: Acute (5) Weight loss Current Visit: No Status: Acute (6) HIV (human immunodeficiency virus infection) Current Visit: No Status: Chronic Comment: PATIENT DOES NOT HAVE HIS HIV MEDICATIONS WITH HIM UPON ADMISSION PATIENT AGREES TO CALL HIS PHARMACY FOR DELIVERY (7) Bipolar II disorder Current Visit: No Status: Suspected (8) Methamphetamine abuse Current Visit: Yes Status: Acute Cleared for Admission [facility] - Detox or Rehab [facility] Level of Care: Medically Managed Detox Regimen/Protocol: Librium [facility] Breath Alcohol Content Breath Alcohol Content: 0 Urine Drug Screen - Results Drug Screen Negative: No Urine Drug Screen Results: THC-Marijuana, WILL-Cocaine, TCA-Tricyclic Antidepress
[2017-06-10] MEDS ORDERED: MAGNESIUM CITRATE 300 ML BOTTLE PO PRN (13:02)
[2017-06-10] MEDS ORDERED: P-EPHED 60MG/TRIPROLIDI 2.5MG TABLET PO PRN (13:02)
[2017-06-10] MEDS ORDERED: guaiFENesin/D-METHORPHAN HB 10 ML UNIT-DOSE CUPS PO PRN (13:02)
[2017-06-10] MEDS ORDERED: MAGNESIUM HYDROX 2400MG/30ML ORAL SUSPENSION 30 ML CUP PO PRN (13:02)
[2017-06-10] MEDS ORDERED: MENTHOL/PHENOL 1 EACH UD MM PRN (13:02)
[2017-06-10] MEDS ORDERED: NICOTINE POLACRILEX 2 MG GUM BUC PRN (13:02)
[2017-06-10] MEDS ORDERED: ACETAMINOPHEN 325 MG TABLET (FP) PO PRN (13:02)
[2017-06-10] MEDS ORDERED: chlordiazePOXIDE HCL 25 MG CAPSULE PO PRN (13:02)
[2017-06-10] MEDS ORDERED: LOPERAMIDE HCL 2 MG CAPSULE PO PRN (13:02)
[2017-06-10] MEDS ORDERED: chlordiazePOXIDE HCL 25 MG CAPSULE PO ONE (14:00)
[2017-06-10] MEDS: NICOTINE 21 MG/24 HOURS TOPICAL PATCH TD SCH (15:00)
[2017-06-10 15:18] LABS: URINE APPEARANCE CLEAR; URINE BILIRUBIN NEGATIVE (NEGATIVE); URINE BLOOD NEGATIVE (NEGATIVE); URINE COLOR YELLOW; URINE GLUCOSE (UA) NEGATIVE (NEGATIVE); URINE KETONE NEGATIVE (NEGATIVE); URINE LEUK ESTERASE NEGATIVE (NEGATIVE); URINE NITRITE NEGATIVE (NEGATIVE); URINE PROTEIN NEGATIVE (NEGATIVE); URINE UROBILINOGEN NEGATIVE mg/dL (0.2-1.0)
[2017-06-10] MEDS: chlordiazePOXIDE HCL 25 MG CAPSULE PO SCH ×2 (17:55→22:33)
[2017-06-10] MEDS: THIAMINE HCL 100 MG TABLET (FP) PO SCH (22:33)
[2017-06-11] MEDS: hydrOXYzine PAMOATE 50 MG CAPSULE (FP) PO PRN (02:41)
[2017-06-11] MEDS: MAG HYDROX/AL HYDROX/SIMETH 30 ML UNIT-DOSE CUP PO PRN ×2 (02:41→18:26)
[2017-06-11] MEDS: chlordiazePOXIDE HCL 25 MG CAPSULE PO SCH ×4 (06:07→22:26)
[2017-06-11 10:14] LABS: HEMATOCRIT 43.4 % (35.4-49); HEMOGLOBIN 14.5 GM/dL (11.7-16.9); MCH 31.8 pg (25.7-33.7); MCHC 33.6 g/dl (32.0-35.9); MEAN CELL VOLUME 94.9 fl (80-96); MEAN PLT VOLUME 9.6 fl (7.5-11.1); PLATELET COUNT 176 K/MM3 (134-434); RBC 4.57 M/mm3 (4.00-5.60); RDW 13.6 % (11.9-15.9); WHITE BLOOD COUNT 5.5 K/mm3 (4.0-10.0)
[2017-06-11 10:24] LABS: ALBUMIN 3.5 g/dl (3.4-5.0); ALK PHOS 67 U/L (45-117); ANION GAP 9 (8-16); BILIRUBIN,TOTAL 0.3 mg/dL (0.2-1.0); BLOOD UREA NITROGEN 13 mg/dL (7-18); CALCIUM 8.1 mg/dL (8.5-10.1); CHLORIDE 104 mmol/L (98-107); CO2 29 mmol/L (21-32); CREATININE 0.8 mg/dL (0.7-1.3); GLUCOSE,RANDOM 108 mg/dL (74-106); POTASSIUM 3.9 mmol/L (3.5-5.1); SGOT/AST 20 U/L (15-37); SGPT/ALT 21 U/L (12-78); SODIUM 142 mmol/L (136-145); TOT PROT 6.5 g/dl (6.4-8.2)
[2017-06-11] MEDS: PRENATAL VITAMINS W/ FOLIC ACID TABLET (FP) PO SCH (10:36)
[2017-06-11] MEDS: NICOTINE 21 MG/24 HOURS TOPICAL PATCH TD SCH (10:36)
[2017-06-11] MEDS: EMTRICITABINE 200MG/TENOFOVIR 300MG PO SCH (10:36)
[2017-06-11] MEDS: DOLUTEGRAVIR SODIUM 50 MG TABLET PO SCH (10:38)
--- NOTE | 2017-06-11 10:50 | EKG ---
Test Reason : Blood Pressure : / mmHG Vent. Rate : 072 BPM Atrial Rate : 072 BPM P-R Int : 138 ms QRS Dur : 096 ms QT Int : 380 ms P-R-T Axes : 055 064 050 degrees QTc Int : 416 ms NORMAL SINUS RHYTHM NORMAL ECG WHEN COMPARED WITH ECG OF 17-MAY-2017 07:40, NO SIGNIFICANT CHANGE WAS FOUND Confirmed by ALAN BENÍTEZ MD ([id number]) on 06/11/2017 10:50:01 AM Referred By: Confirmed By:ALAN BENÍTEZ MD
--- NOTE | 2017-06-11 11:18 | PN ---
S CIWA - CIWA Score Nausea/Vomitin Muscle Tremors: 3 Anxiety: 3 Agitation: 3 Paroxysmal Sweats: 1-Minimal Palms Moist Orientation: 0-Oriented Tacttile Disturbances: 1-Very Mild Itch/Numbness Auditory Disturbances: 1-Very Mild Visual Disturbances: 0-None Headache: 2-Mild CIWA-Ar Total Score: 17 BHS Progress Note (SOAP) Subjective: ALERT,IRRITABLE,ANXIOUS,INTERRUPTED SLEEP,TREMOR Objective: 06/11/17 11:15 Vital Signs Temperature 98.6 F 06/11/17 10:00 Pulse Rate 99 H 06/11/17 10:00 Respiratory Rate 18 06/11/17 10:00 Blood Pressure 136/76 06/11/17 10:00 O2 Sat by Pulse Oximetry (%) EKG NSR 72/MIN NO CHEST PAIN,NO SOB,NO DIZZINESS Laboratory Last Values WBC 5.5 K/mm3 (4.0-10.0) D 06/11/17 07:00 RBC 4.57 M/mm3 (4.00-5.60) 06/11/17 07:00 Hgb 14.5 GM/dL (11.7-16.9) 06/11/17 07:00 Hct 43.4 % (35.4-49) 06/11/17 07:00 MCV 94.9 fl (80-96) 06/11/17 07:00 MCH 31.8 pg (25.7-33.7) 06/11/17 07:00 MCHC 33.6 g/dl (32.0-35.9) 06/11/17 07:00 RDW 13.6 % (11.9-15.9) 06/11/17 07:00 Plt Count 176 K/MM3 (134-434) D 06/11/17 07:00 MPV 9.6 fl (7.5-11.1) D 06/11/17 07:00 Sodium 142 mmol/L (136-145) 06/11/17 07:00 Potassium 3.9 mmol/L (3.5-5.1) 06/11/17 07:00 Chloride 104 mmol/L (98-107) 06/11/17 07:00 Carbon Dioxide 29 mmol/L (21-32) 06/11/17 07:00 Anion Gap 9 (8-16) 06/11/17 07:00 BUN 13 mg/dL (7-18) 06/11/17 07:00 Creatinine 0.8 mg/dL (0.7-1.3) 06/11/17 07:00 Creat Clearance w eGFR > 60 (>60) 06/11/17 07:00 Random Glucose 108 mg/dL (74-106) H 06/11/17 07:00 Calcium 8.1 mg/dL (8.5-10.1) L 06/11/17 07:00 Total Bilirubin 0.3 mg/dL (0.2-1.0) D 06/11/17 07:00 AST 20 U/L (15-37) D 06/11/17 07:00 ALT 21 U/L (12-78) 06/11/17 07:00 Alkaline Phosphatase 67 U/L (45-117) 06/11/17 07:00 Total Protein 6.5 g/dl (6.4-8.2) 06/11/17 07:00 Albumin 3.5 g/dl (3.4-5.0) 06/11/17 07:00 Urine Color Yellow 06/10/17 15:01 Urine Appearance Clear 06/10/17 15:01 Urine pH 5.0 (5.0-8.0) 06/10/17 15:01 Ur Specific [place] 1.027 (1.001-1.035) 06/10/17 15:01 Urine Protein Negative (NEGATIVE) 06/10/17 15:01 Urine Glucose (UA) Negative (NEGATIVE) 06/10/17 15:01 Urine Ketones Negative (NEGATIVE) 06/10/17 15:01 Urine Blood Negative (NEGATIVE) 06/10/17 15:01 Urine Nitrite Negative (NEGATIVE) 06/10/17 15:01 Urine Bilirubin Negative (NEGATIVE) 06/10/17 15:01 Urine Urobilinogen Negative mg/dL (0.2-1.0) 06/10/17 15:01 Ur Leukocyte Esterase Negative (NEGATIVE) 06/10/17 15:01 Assessment: 06/11/17 11:17 WITHDRAWAL SYMPTOM Plan: CONTINUE DETOX
[2017-06-11] MEDS: SELENIUM SULFIDE 2.5% LOTION 4 OZ. TP SCH (12:25)
--- NOTE | 2017-06-11 16:42 | CONSULT ---
[facility] Psychiatric Consult - Data Date of interview: 06/11/17 Admission source: [facility] Identifying data: Readmission to [facility] for this 31 y/o male,from [facility],seeking detox treatment on for alcohol,methamphetamine, cannabis and cocaine dependence.Patient is ,no children,unemployed, homeless and reportedly deprived of any source of income. Substance Abuse History: Confirmed by patient in this session.Refer to current [facility] report for details of patterns of abuse : Smoking history: Current every day smoker. Have you smoked in the past 12 months: Yes. Aproximately how many cigarettes per day: 7. Cigars Per Day: 0. Hx Chewing Tobacco Use: No. Initiated information on smoking cessation: Yes. 'Breaking Loose' booklet given : 06/10/17. - Substance & Tx. History. Hx Alcohol Use: Yes. Hx Substance Use : Yes. Substance Use Type: Alcohol, Cocaine, Marijuana. - Substances Abused. Crack. Route: Smoking. Frequency: Daily. Amount used: $40. Age of first use: 17. Date of Last Use: 06/08/17. Cocaine. Route: Inhalation. Frequency: 1-2 times per week. Amount used: 1gram. Age of first use: 20. Date of Last Use: 06/03/17. Methamphetamine. Route: Oral. Frequency: 1-3 times last 30 days. Amount used: $20. Age of first use: 16. Date of Last Use : 05/20/17. etoh. Route: Oral. Frequency: Daily. Amount used: 1/4 vodka, 2Beer. Age of first use: 10. Date of Last Use: 06/09/17. thc. Route: Smoking. Frequency: 3-6 times per week. Amount used: $10. Age of first use: 12. Date of Last Use: 06/08/17 Medical History: HIV infection since 2014 (on ART medications),orthosurgery for injury to right knee and a history of genito-urinary surgery at age [age] for injury secondary to blunt trauma to pelvis. Psychiatric History: Onset of psychiatric disturbances : age 18.History of multiple psychiatric hospitalizations ([facility] and several commitments in [place]Recalls a past history of " hearing voices ".Has no recollection of the names of medications used in his [place] [facility].However,according to patient,he was diagnosed with MDD and Bipolar Disorder during an admission to [facility] rehabilitation unit and prescribed zoloft and valproate.No psychiatric OPD care for several months.Lost account of date of last medication intake.In this interview,Mr Bergeron denies history of suicide attempts (claims that overdose with depakote in 2016 was accidental). Physical/Sexual Abuse/Trauma History: Patient denies history of sexual abuse. Additional Comment: Urine Drug Screen Results: THC-Marijuana, WILL-Cocaine, TCA- Tricyclic Antidepressant.Noted. Mental Status Exam - Mental Status Exam Alert and Oriented to: Time, Place, Person Cognitive Function: Good Patient Appearance: Well Groomed Mood: Nervous, Withdrawn, Anxious Affect: Mood Congruent Patient Behavior: Fatigued, Appropriate, Cooperative Speech Pattern: Clear, Appropriate Voice Loudness: Normal Thought Process: Goal Oriented Thought Disorder: Not Present Hallucinations: Denies Suicidal Ideation: Denies Homicidal Ideation: Denies Insight/Judgement: Poor Sleep: Poorly, Difficulty falling asleep Appetite: Good Muscle strength/Tone: Normal Gait/Station: Normal Psychiatric Findings - Problem List ([place] 1, 2,3) (1) Alcohol dependence with uncomplicated withdrawal Status: Acute (2) Cocaine dependence, uncomplicated Status: Acute (3) Cannabis dependence Status: Acute (4) Nicotine dependence Status: Acute Qualifiers: Nicotine product type: cigarettes Substance use status: in withdrawal Qualified Code(s): F17.213 - Nicotine dependence, cigarettes, with withdrawal (5) Substance induced mood disorder Status: Acute (6) Insomnia Status: Acute - Initial Treatment Plan Initial Treatment Plan: Records revisited.Sleep hygiene.Psychoeducation.Detoxification in progress.Zoloft 50 mg po daily + ambien 10 mg po hs prn.Side effects/benefits of both drugs are discussed with the patient.Made aware of risk of sexual dysfunction,suicidal ideation and sleep -walking.Mr Bergeron denies any history of prior adverse effect from these medications and he agrees to follow this careplan.Observation.
[2017-06-11] MEDS: THIAMINE HCL 100 MG TABLET (FP) PO SCH (22:26)
[2017-06-11] MEDS: ZOLPIDEM TARTRATE 5 MG TABLET PO PRN (22:28)
[2017-06-12] MEDS: chlordiazePOXIDE HCL 25 MG CAPSULE PO SCH ×2 (05:19→10:47)
[2017-06-12] MEDS: MAG HYDROX/AL HYDROX/SIMETH 30 ML UNIT-DOSE CUP PO PRN ×2 (09:35→22:32)
--- NOTE | 2017-06-12 10:31 | PN ---
BHS CIWA - CIWA Score Nausea/Vomitin Muscle Tremors: 3 Anxiety: 2 Paroxysmal Sweats: 1-Minimal Palms Moist Orientation: 0-Oriented Tacttile Disturbances: 1-Very Mild Itch/Numbness Auditory Disturbances: 1-Very Mild Visual Disturbances: 0-None Headache: 2-Mild BHS Progress Note (SOAP) Subjective: ALERT,IRRITABLE,ANXIOUS,INTERRUPTED SLEEP,TREMOR Objective: 06/12/17 10:29 Vital Signs Temperature 96.4 F L 06/12/17 06:00 Pulse Rate 83 06/12/17 06:00 Respiratory Rate 18 06/12/17 06:00 Blood Pressure 127/76 06/12/17 06:00 O2 Sat by Pulse Oximetry (%) Laboratory Last Values WBC 5.5 K/mm3 (4.0-10.0) D 06/11/17 07:00 RBC 4.57 M/mm3 (4.00-5.60) 06/11/17 07:00 Hgb 14.5 GM/dL (11.7-16.9) 06/11/17 07:00 Hct 43.4 % (35.4-49) 06/11/17 07:00 MCV 94.9 fl (80-96) 06/11/17 07:00 MCH 31.8 pg (25.7-33.7) 06/11/17 07:00 MCHC 33.6 g/dl (32.0-35.9) 06/11/17 07:00 RDW 13.6 % (11.9-15.9) 06/11/17 07:00 Plt Count 176 K/MM3 (134-434) D 06/11/17 07:00 MPV 9.6 fl (7.5-11.1) D 06/11/17 07:00 Sodium 142 mmol/L (136-145) 06/11/17 07:00 Potassium 3.9 mmol/L (3.5-5.1) 06/11/17 07:00 Chloride 104 mmol/L (98-107) 06/11/17 07:00 Carbon Dioxide 29 mmol/L (21-32) 06/11/17 07:00 Anion Gap 9 (8-16) 06/11/17 07:00 BUN 13 mg/dL (7-18) 06/11/17 07:00 Creatinine 0.8 mg/dL (0.7-1.3) 06/11/17 07:00 Creat Clearance w eGFR > 60 (>60) 06/11/17 07:00 Random Glucose 108 mg/dL (74-106) H 06/11/17 07:00 Calcium 8.1 mg/dL (8.5-10.1) L 06/11/17 07:00 Total Bilirubin 0.3 mg/dL (0.2-1.0) D 06/11/17 07:00 AST 20 U/L (15-37) D 06/11/17 07:00 ALT 21 U/L (12-78) 06/11/17 07:00 Alkaline Phosphatase 67 U/L (45-117) 06/11/17 07:00 Total Protein 6.5 g/dl (6.4-8.2) 06/11/17 07:00 Albumin 3.5 g/dl (3.4-5.0) 06/11/17 07:00 Urine Color Yellow 06/10/17 15:01 Urine Appearance Clear 06/10/17 15:01 Urine pH 5.0 (5.0-8.0) 06/10/17 15:01 Ur Specific [place] 1.027 (1.001-1.035) 06/10/17 15:01 Urine Protein Negative (NEGATIVE) 06/10/17 15:01 Urine Glucose (UA) Negative (NEGATIVE) 06/10/17 15:01 Urine Ketones Negative (NEGATIVE) 06/10/17 15:01 Urine Blood Negative (NEGATIVE) 06/10/17 15:01 Urine Nitrite Negative (NEGATIVE) 06/10/17 15:01 Urine Bilirubin Negative (NEGATIVE) 06/10/17 15:01 Urine Urobilinogen Negative mg/dL (0.2-1.0) 06/10/17 15:01 Ur Leukocyte Esterase Negative (NEGATIVE) 06/10/17 15:01 RPR Titer Nonreactive (NONREACTIVE) 06/11/17 07:00 Assessment: 06/12/17 10:30 WITHDRAWAL SYMPTOM Plan: CONTINUE DETOX
[2017-06-12] MEDS: SERTRALINE HCL 50 MG TABLET (FP) PO SCH (10:46)
[2017-06-12] MEDS: DOLUTEGRAVIR SODIUM 50 MG TABLET PO SCH (10:46)
[2017-06-12] MEDS: EMTRICITABINE 200MG/TENOFOVIR 300MG PO SCH (10:46)
[2017-06-12] MEDS: PRENATAL VITAMINS W/ FOLIC ACID TABLET (FP) PO SCH (10:47)
[2017-06-12] MEDS: NICOTINE 21 MG/24 HOURS TOPICAL PATCH TD SCH (10:47)
[2017-06-12] MEDS: SELENIUM SULFIDE 2.5% LOTION 4 OZ. TP SCH (10:47)
[2017-06-12] MEDS: CLOTRIMAZOLE 1% CREAM 15 GM TUBE TP SCH ×2 (12:53→22:30)
[2017-06-12] MEDS: IBUPROFEN 400 MG TABLET (FP) PO PRN (12:53)
[2017-06-12] MEDS: chlordiazePOXIDE 5 MG CAPSULE PO SCH ×2 (17:42→22:29)
[2017-06-12] MEDS: hydrOXYzine PAMOATE 50 MG CAPSULE (FP) PO PRN (19:16)
[2017-06-12] MEDS: THIAMINE HCL 100 MG TABLET (FP) PO SCH (22:29)
[2017-06-12] MEDS: ZOLPIDEM TARTRATE 5 MG TABLET PO PRN (22:29)
[2017-06-13] MEDS: chlordiazePOXIDE 5 MG CAPSULE PO SCH ×2 (05:59→10:31)
[2017-06-13] MEDS: MAG HYDROX/AL HYDROX/SIMETH 30 ML UNIT-DOSE CUP PO PRN (09:23)
--- NOTE | 2017-06-13 10:04 | PN ---
S Progress Note (SOAP) Subjective: ALERT,IRRITABLE,INTERRUPTED SLEEP Objective: 06/13/17 10:03 Vital Signs Temperature 96.1 F L 06/13/17 06:20 Pulse Rate 88 06/13/17 06:20 Respiratory Rate 18 06/13/17 06:20 Blood Pressure 106/74 06/13/17 06:20 O2 Sat by Pulse Oximetry (%) Assessment: 06/13/17 10:03 WITHDRAWAL SYMPTOM Plan: CONTINUE DETOX,DISCHARGE IN AM
[2017-06-13] MEDS: CLOTRIMAZOLE 1% CREAM 15 GM TUBE TP SCH ×2 (10:31→22:21)
[2017-06-13] MEDS: SERTRALINE HCL 50 MG TABLET (FP) PO SCH (10:31)
[2017-06-13] MEDS: PRENATAL VITAMINS W/ FOLIC ACID TABLET (FP) PO SCH (10:31)
[2017-06-13] MEDS: NICOTINE 21 MG/24 HOURS TOPICAL PATCH TD SCH (10:31)
[2017-06-13] MEDS: DOLUTEGRAVIR SODIUM 50 MG TABLET PO SCH (10:31)
[2017-06-13] MEDS: EMTRICITABINE 200MG/TENOFOVIR 300MG PO SCH (10:34)
[2017-06-13] MEDS: IBUPROFEN 400 MG TABLET (FP) PO PRN ×2 (10:35→22:22)
[2017-06-13] MEDS: SELENIUM SULFIDE 2.5% LOTION 4 OZ. TP SCH (10:36)
[2017-06-13] MEDS: chlordiazePOXIDE HCL 10 MG CAPSULE PO SCH ×2 (17:50→22:20)
[2017-06-13] MEDS: hydrOXYzine PAMOATE 50 MG CAPSULE (FP) PO PRN (17:58)
[2017-06-13] MEDS: THIAMINE HCL 100 MG TABLET (FP) PO SCH (22:20)
[2017-06-13] MEDS: ZOLPIDEM TARTRATE 5 MG TABLET PO PRN (22:20)
[2017-06-14] MEDS: chlordiazePOXIDE HCL 10 MG CAPSULE PO SCH (05:35)
[2017-06-14 06:24] VITALS: BP 141/96; PULSE 52; TEMP 96.1
--- NOTE | 2017-06-14 09:08 | PN ---
S Progress Note (SOAP) Subjective: ALERT,NO COMPLAINT Objective: 06/14/17 09:07 Vital Signs Temperature 96.1 F L 06/14/17 06:23 Pulse Rate 52 L 06/14/17 06:23 Respiratory Rate 18 06/14/17 06:23 Blood Pressure 141/96 06/14/17 06:23 O2 Sat by Pulse Oximetry (%) Assessment: 06/14/17 09:07DETOX COMPLETED,NO WITHDRAWAL SYMPTOM Plan: DISCHRGE TODAY,FOLLOW UP WITH AFTER CARE PROGRAM ARRANGEMENT
--- NOTE | 2017-06-14 09:13 | DS ---
[facility] Detox Discharge Summary Admission Date: 06/10/17 Discharge Date: 06/14/17 - History Present History: Alcohol Dependence, Cocaine Dependence Additional Comments: FOLLOW UP WITH AFTER [facility] PROGRAM ARRANGEMENT,[facility] Pertinent Past History: HIV WEIGHT LOSS BIPOLAR DISORDER NICOTINE DEPENDENCE METHAMPHETAMINE ABUSED - Physical Exam Results Vital Signs: Vital Signs Temperature 96.1 F L 06/14/17 06:23 Pulse Rate 52 L 06/14/17 06:23 Respiratory Rate 18 06/14/17 06:23 Blood Pressure 141/96 06/14/17 06:23 O2 Sat by Pulse Oximetry (%) Pertinent Admission Physical Exam Findings: WITHDRAWAL SIGNS AND SYMPTOMS Vital Signs Temperature 96.1 F L 06/14/17 06:23 Pulse Rate 52 L 06/14/17 06:23 Respiratory Rate 18 06/14/17 06:23 Blood Pressure 141/96 06/14/17 06:23 O2 Sat by Pulse Oximetry (%) - Treatment Hospital Course: Detox Protocol Followed, Detoxed Safely, Responded well, Discharged Condition Good, Rehab Referral Accepted Patient has Accepted a Rehab Referral to: [facility] - Medication Discharge Medications: Ambulatory Orders Dolutegravir Sodium [Tivicay] 50 mg PO DAILY #30 tablet 04/24/17 Emtricitabine/Tenofovir [Truvada -] 1 tab PO DAILY #30 tablet 04/24/17 Sertraline HCl [Zoloft -] 50 mg PO DAILY #30 tablet 04/24/17 - Diagnosis (1) Alcohol dependence with uncomplicated withdrawal Current Visit: Yes Status: Acute (2) Cocaine dependence, uncomplicated Current Visit: Yes Status: Acute (3) Nicotine dependence Current Visit: Yes Status: Acute Qualifiers: Nicotine product type: cigarettes Substance use status: in withdrawal Qualified Code(s): F17.213 - Nicotine dependence, cigarettes, with withdrawal (4) Substance induced mood disorder Current Visit: Yes Status: Acute (5) Weight loss Current Visit: No Status: Acute (6) HIV (human immunodeficiency virus infection) Current Visit: No Status: Chronic (7) Bipolar II disorder Current Visit: No Status: Suspected (8) Methamphetamine abuse Current Visit: Yes Status: Acute - AMA Did Patient Leave Against Medical Advice: No
[2017-06-14] MEDS: PRENATAL VITAMINS W/ FOLIC ACID TABLET (FP) PO SCH (09:23)
[2017-06-14] MEDS: DOLUTEGRAVIR SODIUM 50 MG TABLET PO SCH (09:23)
[2017-06-14] MEDS: SERTRALINE HCL 50 MG TABLET (FP) PO SCH (09:23)
[2017-06-14] MEDS: hydrOXYzine PAMOATE 50 MG CAPSULE (FP) PO PRN (09:27)
[2017-06-14] MEDS: EMTRICITABINE 200MG/TENOFOVIR 300MG PO SCH (09:41)
== END 2017-06-14 10:15 | disposition home or self-care (01) | DRG 774 ==
LOC: YASAS 09:42 → Y6N 13:41
PROVIDERS: ADMIT Internal Medicine; ATTEND Internal Medicine
PROC: HZ2ZZZZ Detoxification Services for Substance Abuse Treatment (ICD-10-PCS; principal; 2017-06-10)
DX: F10.230 Alcohol dependence with withdrawal, uncomplicated (principal); F14.20 Cocaine dependence, uncomplicated; F12.20 Cannabis dependence, uncomplicated; F15.10 Other stimulant abuse, uncomplicated; F17.213 Nicotine dependence, cigarettes, with withdrawal; F19.24 Other psychoactive substance dependence with psychoactive substance-induced mood disorder; F31.81 Bipolar II disorder; Z21 Asymptomatic human immunodeficiency virus [HIV] infection status; G47.00 Insomnia, unspecified; Z88.8 Allergy status to other drugs, medicaments and biological substances; Z87.898 Personal history of other specified conditions
CPT/HCPCS: 36415; 80053; 81003; 85027; 86593; 93005; 93010

== ENCOUNTER 2018-03-31 16:09 | Inpatient (IN) | payer OTHER ==
[2018-03-31 16:24] VITALS: BMI 30.4
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
[2018-03-31] MEDS ORDERED: NICOTINE POLACRILEX 2 MG GUM BC PRN (18:11)
[2018-03-31] MEDS ORDERED: hydrOXYzine PAMOATE 50 MG CAPSULE (FP) PO PRN (18:11)
[2018-03-31] MEDS ORDERED: ACETAMINOPHEN 325 MG TABLET (FP) PO PRN (18:11)
[2018-03-31] MEDS ORDERED: MENTHOL/PHENOL 1 EACH UD MM PRN (18:11)
[2018-03-31] MEDS ORDERED: MAG HYDROX/AL HYDROX/SIMETH 30 ML UNIT-DOSE CUP PO PRN (18:11)
[2018-03-31] MEDS ORDERED: guaiFENesin/D-METHORPHAN HB 10 ML UNIT-DOSE CUPS PO PRN (18:11)
[2018-03-31] MEDS ORDERED: MAGNESIUM CITRATE 300 ML BOTTLE PO PRN (18:11)
[2018-03-31] MEDS ORDERED: P-EPHED 60MG/TRIPROLIDI 2.5MG TABLET PO PRN (18:11)
[2018-03-31] MEDS ORDERED: chlordiazePOXIDE HCL 25 MG CAPSULE PO PRN (18:11)
[2018-03-31] MEDS ORDERED: LOPERAMIDE HCL 2 MG CAPSULE PO PRN (18:11)
[2018-03-31] MEDS ORDERED: MAGNESIUM HYDROX 2400MG/30ML ORAL SUSPENSION 30 ML CUP PO PRN (18:11)
[2018-03-31] MEDS ORDERED: IBUPROFEN 400 MG TABLET (FP) PO PRN (18:11)
[2018-03-31] MEDS ORDERED: MELATONIN 5 MG TABLETS PO PRN (22:00)
[2018-03-31] MEDS: chlordiazePOXIDE HCL 25 MG CAPSULE PO SCH (22:15)
[2018-03-31] MEDS: THIAMINE HCL 100 MG TABLET (FP) PO SCH (22:15)
[2018-04-01] MEDS: chlordiazePOXIDE HCL 25 MG CAPSULE PO SCH ×4 (06:00→22:54)
[2018-04-01] MEDS: NICOTINE 21 MG/24 HOURS TOPICAL PATCH TD SCH ×2 (10:21→10:26)
[2018-04-01] MEDS: PRENATAL VITAMINS W/ FOLIC ACID TABLET (FP) PO SCH (10:21)
[2018-04-01 10:50] LABS: HEMATOCRIT 42.6 % (35.4-49); HEMOGLOBIN 14.1 GM/dL (11.7-16.9); MCHC 33.1 g/dl (32.0-35.9); MEAN CELL VOLUME 96.7 fl (80-96); MEAN PLT VOLUME 9.5 fl (7.5-11.1); PLATELET COUNT 180 K/MM3 (134-434); RBC 4.41 M/mm3 (4.00-5.60); RDW 14.4 % (11.9-15.9); WHITE BLOOD COUNT 5.2 K/mm3 (4.0-10.0)
[2018-04-01 11:05] LABS: ALBUMIN 3.4 g/dl (3.4-5.0); ALK PHOS 78 U/L (45-117); ANION GAP 6 MMOL/L (8-16); BILIRUBIN,TOTAL 0.2 mg/dL (0.2-1); BLOOD UREA NITROGEN 12 mg/dL (7-18); CALCIUM 8.2 mg/dL (8.5-10.1); CHLORIDE 106 mmol/L (98-107); CO2 27 mmol/L (21-32); CREATININE 0.8 mg/dL (0.55-1.3); GLUCOSE,RANDOM 105 mg/dL (74-106); POTASSIUM 4.1 mmol/L (3.5-5.1); SGOT/AST 24 U/L (15-37); SGPT/ALT 27 U/L (13-61); SODIUM 139 mmol/L (136-145); TOT PROT 6.4 g/dl (6.4-8.2)
--- NOTE | 2018-04-01 11:28 | PN ---
[facility] CIWA - CIWA Score Nausea/Vomitin-No Nausea/No Vomiting Muscle Tremors: 3 Anxiety: 3 Agitation: 3 Paroxysmal Sweats: 3 Orientation: 0-Oriented Tacttile Disturbances: 0-None Auditory Disturbances: 0-None Visual Disturbances: 0-None Headache: 0-None Present CIWA-Ar Total Score: 12 S Progress Note (SOAP) Subjective: headache sweats shakes interrupted sleep body aches Objective: 04/01/18 11:27 Vital Signs Temperature 98.6 F 04/01/18 09:09 Pulse Rate 98 H 04/01/18 09:09 Respiratory Rate 18 04/01/18 09:09 Blood Pressure 125/69 04/01/18 09:09 O2 Sat by Pulse Oximetry (%) Laboratory Tests 04/01/18 04/01/18 07:45 07:45 WBC 5.2 RBC 4.41 Hgb 14.1 Hct 42.6 MCV 96.7 H MCH 32.0 MCHC 33.1 RDW 14.4 Plt Count 180 MPV 9.5 Sodium 139 Potassium 4.1 Chloride 106 Carbon Dioxide 27 Anion Gap 6 L BUN 12 Creatinine 0.8 Creat Clearance w eGFR > 60 Random Glucose 105 Calcium 8.2 L Total Bilirubin 0.2 AST 24 ALT 27 Alkaline Phosphatase 78 Total Protein 6.4 Albumin 3.4 aaox3 ambulating no acute distress Assessment: 04/01/18 11:28 withdrawal sx Plan: continue detox increase fluids
[2018-04-01] MEDS: PATIENT'S OWN MEDICATION (NON-FORMULARY) (Emtricitabine/Tenofovir [Truvada -] 1 TAB) PO SCH (14:00)
[2018-04-01] MEDS: PATIENT'S OWN MEDICATION (NON-FORMULARY) (Dolutegravir Sodium [Tivicay] 50 MG) PO SCH (14:00)
--- NOTE | 2018-04-01 18:36 | PN ---
[facility] Progress Note Note: Psychiatry Attending's note : Patient was approached earlier for psychiatric interview. Declined. " I am too tired now. Some other time ". Staff is aware. Examination deferred at the patient's convenience.
[2018-04-01] MEDS: THIAMINE HCL 100 MG TABLET (FP) PO SCH (22:54)
[2018-04-02] MEDS: chlordiazePOXIDE HCL 25 MG CAPSULE PO SCH ×2 (05:52→10:08)
[2018-04-02] MEDS: NICOTINE 21 MG/24 HOURS TOPICAL PATCH TD SCH (10:08)
[2018-04-02] MEDS: PATIENT'S OWN MEDICATION (NON-FORMULARY) (Emtricitabine/Tenofovir [Truvada -] 1 TAB) PO SCH (10:08)
[2018-04-02] MEDS: PRENATAL VITAMINS W/ FOLIC ACID TABLET (FP) PO SCH (10:08)
[2018-04-02] MEDS: PATIENT'S OWN MEDICATION (NON-FORMULARY) (Dolutegravir Sodium [Tivicay] 50 MG) PO SCH (10:09)
--- NOTE | 2018-04-02 11:50 | PN ---
S CIWA - CIWA Score Nausea/Vomitin-Mild Nausea/No Vomiting Muscle Tremors: 2 Anxiety: 1-Mildly Anxious Agitation: 1-Slight > Activity Paroxysmal Sweats: 2 Orientation: 0-Oriented Tacttile Disturbances: 1-Very Mild Itch/Numbness Auditory Disturbances: 0-None Visual Disturbances: 0-None Headache: 0-None Present CIWA-Ar Total Score: 8 BHS Progress Note (SOAP) Subjective: feeling better, but tired , having interrupted sleep, with mild sweats Objective: 04/02/18 11:49 Vital Signs Temperature 97.7 F 04/02/18 09:25 Pulse Rate 79 04/02/18 09:25 Respiratory Rate 18 04/02/18 09:25 Blood Pressure 127/68 04/02/18 09:25 O2 Sat by Pulse Oximetry (%) Laboratory Tests 04/01/18 04/01/18 04/01/18 07:45 07:45 07:45 WBC 5.2 RBC 4.41 Hgb 14.1 Hct 42.6 MCV 96.7 H MCH 32.0 MCHC 33.1 RDW 14.4 Plt Count 180 MPV 9.5 Sodium 139 Potassium 4.1 Chloride 106 Carbon Dioxide 27 Anion Gap 6 L BUN 12 Creatinine 0.8 Creat Clearance w eGFR > 60 Random Glucose 105 Calcium 8.2 L Total Bilirubin 0.2 AST 24 ALT 27 Alkaline Phosphatase 78 Total Protein 6.4 Albumin 3.4 RPR Titer Nonreactive pt aox3 lying in bed in nad Assessment: 04/02/18 11:49 withdrawal sx;s Plan: cont. detox increase fluids
[2018-04-02 13:39] VITALS: BP 145/87; PULSE 84; TEMP 97.9
--- NOTE | 2018-04-02 15:34 | DS ---
[facility] Detox Discharge Summary Admission Date: 03/31/18 Discharge Date: 04/02/18 - History Present History: Alcohol Dependence, Cannabis Dependence, Cocaine Dependence - Physical Exam Results Vital Signs: Vital Signs Temperature 97.9 F 04/02/18 13:38 Pulse Rate 84 04/02/18 13:38 Respiratory Rate 18 04/02/18 13:38 Blood Pressure 145/87 04/02/18 13:38 O2 Sat by Pulse Oximetry (%) - Treatment Hospital Course: Detox Protocol Followed - Medication Discharge Medications: Ambulatory Orders Emtricitabine/Tenofovir [Truvada -] 1 tab PO DAILY tablet 10/09/17 Dolutegravir Sodium [Tivicay] 50 mg PO DAILY #30 tablet 10/22/17 - Diagnosis (1) Alcohol dependence with uncomplicated withdrawal Current Visit: Yes Status: Chronic (2) Cannabis dependence Current Visit: Yes Status: Chronic (3) Cocaine dependence Current Visit: No Status: Acute Qualifiers: Substance use status: uncomplicated Qualified Code(s): F14.20 - Cocaine dependence, uncomplicated - AMA Did Patient Leave Against Medical Advice: Yes (It's Xmas and pt waqnt tto leave detox unit - pt aware that there is no nura)
[2018-04-02] MEDS ORDERED: chlordiazePOXIDE 5 MG CAPSULE PO SCH (23:00)
[2018-04-03] MEDS ORDERED: chlordiazePOXIDE HCL 10 MG CAPSULE PO SCH (23:00)
== END 2018-04-02 15:36 | disposition left against medical advice (07) | DRG 770 ==
LOC: YASAS 16:09 → Y6N 17:57
PROC: HZ2ZZZZ Detoxification Services for Substance Abuse Treatment (ICD-10-PCS; principal; 2018-03-31)
DX: F10.230 Alcohol dependence with withdrawal, uncomplicated (principal); F14.20 Cocaine dependence, uncomplicated; F12.20 Cannabis dependence, uncomplicated; F17.210 Nicotine dependence, cigarettes, uncomplicated; F31.81 Bipolar II disorder; Z21 Asymptomatic human immunodeficiency virus [HIV] infection status; Z88.0 Allergy status to penicillin
CPT/HCPCS: 36415; 80053; 85027; 86593

== ENCOUNTER 2018-04-04 15:23 | Inpatient (IN) | payer OTHER ==
[2018-04-04 15:39] VITALS: BMI 30.1
--- NOTE | 2018-04-04 19:24 | HP ---
[facility] Re[facility] Assess/Revision - Admission History Admitted to Rehab [facility] (SEBORRHEIC DERMATITIS TO SCALP NOTED) Date of Admission to Rehab: 04/04/2018 - Vital signs Vital Signs: Vital Signs Period Temp Pulse Resp BP Sys/Simpson Pulse Ox Last 24 Hr 97.0 F 110 20 136/90 - Findings Detox History & Physical reviewed: Yes Concur with findings: Yes Inpatient Rehab Admission - Initial Determination Are CD services needed?: Yes Free of communicable disease: Yes Not in need of hospitalization: Yes - Rehab Admission Criteria Previous failed treatment: Yes Poor recovery environment: Yes Comorbidities: Yes Lacks judgement: No Patient is meeting Inpatient Rehab admission criteria:: Yes
[2018-04-04] MEDS ORDERED: NICOTINE POLACRILEX 2 MG GUM BUC PRN (20:21)
[2018-04-04] MEDS ORDERED: ACETAMINOPHEN 325 MG TABLET (FP) PO PRN (20:21)
[2018-04-04] MEDS ORDERED: P-EPHED 60MG/TRIPROLIDI 2.5MG TABLET PO PRN (20:21)
[2018-04-04] MEDS ORDERED: MAGNESIUM CITRATE 300 ML BOTTLE PO PRN (20:21)
[2018-04-04] MEDS ORDERED: LOPERAMIDE HCL 2 MG CAPSULE PO PRN (20:21)
[2018-04-04] MEDS ORDERED: MENTHOL/PHENOL 1 EACH UD MM PRN (20:21)
[2018-04-04] MEDS ORDERED: MAGNESIUM HYDROX 2400MG/30ML ORAL SUSPENSION 30 ML CUP PO PRN (20:21)
[2018-04-04] MEDS ORDERED: guaiFENesin/D-METHORPHAN HB 10 ML UNIT-DOSE CUPS PO PRN (20:21)
[2018-04-04] MEDS: THIAMINE HCL 100 MG TABLET (FP) PO SCH (21:38)
[2018-04-04] MEDS: MELATONIN 5 MG TABLETS PO PRN (21:38)
[2018-04-04] MEDS: KETOCONAZOLE 2 % SHAMPOO 120 ML BOTTLE TP SCH (21:39)
[2018-04-04] MEDS: IBUPROFEN 400 MG TABLET (FP) PO PRN (23:19)
[2018-04-05] MEDS ORDERED: KETOCONAZOLE 2 % SHAMPOO 120 ML BOTTLE TP SCH (10:00)
[2018-04-05] MEDS ORDERED: EMTRICITABINE 200MG/TENOFOVIR 300MG PO SCH ×2 (10:00)
[2018-04-05] MEDS ORDERED: DOLUTEGRAVIR SODIUM 50 MG TABLET (NON-FORMULARY) PO SCH ×2 (10:00)
[2018-04-05] MEDS: PRENATAL VITAMINS W/ FOLIC ACID TABLET (FP) PO SCH (10:14)
[2018-04-05] MEDS: NICOTINE 14 MG/24 HOURS TOPICAL PATCH TD SCH (10:15)
--- NOTE | 2018-04-05 10:17 | PN ---
[facility] Progress Note (SOAP) Subjective: My ankles hurt , i have been walking on them alot Objective: 04/05/18 10:12 Vital Signs Temperature 97.7 F 04/05/18 06:57 Pulse Rate 87 04/05/18 06:57 Respiratory Rate 18 04/05/18 06:57 Blood Pressure 129/85 04/05/18 06:57 O2 Sat by Pulse Oximetry (%) pt aox3 ambulating ankles norma mild swelling , no rubor or calor, no dicolrations , mild tendernes heels norma Imp- ankle pain mild Plan - motrin 400mg tid leg elevation
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
[2018-04-05] MEDS: DOLUTEGRAVIR SODIUM 50 MG PO SCH (11:54)
[2018-04-05] MEDS: [UNRECOGNIZED DRUG - OTHER] PO SCH (11:54)
[2018-04-05] MEDS: EMTRICITABINE PO SCH (11:54)
[2018-04-05] MEDS: THIAMINE HCL 100 MG TABLET (FP) PO SCH (21:38)
[2018-04-05] MEDS: IBUPROFEN 400 MG TABLET (FP) PO PRN (21:38)
[2018-04-05] MEDS: traZODone HCL 50 MG TABLET (FP) PO SCH (21:38)
[2018-04-06] MEDS: DOLUTEGRAVIR SODIUM 50 MG PO SCH (11:44)
[2018-04-06] MEDS: [UNRECOGNIZED DRUG - OTHER] PO SCH (11:44)
[2018-04-06] MEDS: EMTRICITABINE PO SCH (11:44)
[2018-04-06] MEDS: NICOTINE 14 MG/24 HOURS TOPICAL PATCH TD SCH (11:45)
[2018-04-06] MEDS: PRENATAL VITAMINS W/ FOLIC ACID TABLET (FP) PO SCH (11:45)
[2018-04-06] MEDS ORDERED: HYDROCORTISONE 1% TOPICAL OINT 30 GM TUBE TP PRN (13:22)
[2018-04-06] MEDS: KETOCONAZOLE 2 % SHAMPOO 120 ML BOTTLE TP SCH (14:11)
--- NOTE | 2018-04-06 16:20 | PN ---
[facility] Progress Note Note: C/o increased anxiety. 09/2017 EKG w/ NSR and QT interval less than 500. Will prescribe vistaril.
[2018-04-06] MEDS ORDERED: PSEUDOEPHEDRINE HCL 60 MG TABLET PO PRN (16:21)
[2018-04-06] MEDS ORDERED: guaiFENesin 200 MG/10 ML 10 ML UNIT-DOSE CUPS PO PRN (16:21)
[2018-04-06] MEDS: THIAMINE HCL 100 MG TABLET (FP) PO SCH (21:42)
[2018-04-06] MEDS: traZODone HCL 50 MG TABLET (FP) PO SCH (21:42)
[2018-04-06] MEDS: IBUPROFEN 400 MG TABLET (FP) PO PRN (21:43)
[2018-04-07] MEDS: NICOTINE 14 MG/24 HOURS TOPICAL PATCH TD SCH (10:15)
[2018-04-07] MEDS: EMTRICITABINE PO SCH (10:15)
[2018-04-07] MEDS: [UNRECOGNIZED DRUG - OTHER] PO SCH (10:15)
[2018-04-07] MEDS: DOLUTEGRAVIR SODIUM 50 MG PO SCH (10:15)
[2018-04-07] MEDS: PRENATAL VITAMINS W/ FOLIC ACID TABLET (FP) PO SCH (10:16)
[2018-04-07] MEDS: THIAMINE HCL 100 MG TABLET (FP) PO SCH (21:37)
[2018-04-07] MEDS: traZODone HCL 50 MG TABLET (FP) PO SCH (21:37)
[2018-04-07] MEDS: IBUPROFEN 400 MG TABLET (FP) PO PRN (21:38)
[2018-04-07] MEDS: KETOCONAZOLE 2 % SHAMPOO 120 ML BOTTLE TP SCH (21:59)
[2018-04-08] MEDS: EMTRICITABINE PO SCH (10:15)
[2018-04-08] MEDS: DOLUTEGRAVIR SODIUM 50 MG PO SCH (10:15)
[2018-04-08] MEDS: [UNRECOGNIZED DRUG - OTHER] PO SCH (10:15)
[2018-04-08] MEDS: PRENATAL VITAMINS W/ FOLIC ACID TABLET (FP) PO SCH (10:15)
[2018-04-08] MEDS: NICOTINE 14 MG/24 HOURS TOPICAL PATCH TD SCH (10:20)
[2018-04-08] MEDS: IBUPROFEN 400 MG TABLET (FP) PO PRN ×2 (10:51→21:39)
--- NOTE | 2018-04-08 11:37 | PN ---
S Progress Note Note: PATIENT REQUESTED TO SEE PROVIDER FOR PSORIASIS RASH ON SCALP. STATES HYDROCORTISONE CREAM INEFFECTIVE. EXAM SHOW PLAQUE RASH AROUND HAIRLINE. NO OPEN AREAS. WILL D/C HYDROCORTISONE AND START TRIAMINCINOLONE OINTMENT, CONTINUE SHAMPOO ORDERED. CONTINUE TO MONITOR.
[2018-04-08] MEDS: TRIAMCINOLONE ACET 0.1% OINT 15 GM TUBE TP SCH ×2 (12:37→21:43)
[2018-04-08] MEDS: COLLOIDAL OATMEAL 1 BAR EACH TP PRN (19:54)
[2018-04-08] MEDS: THIAMINE HCL 100 MG TABLET (FP) PO SCH (21:39)
[2018-04-08] MEDS: traZODone HCL 50 MG TABLET (FP) PO SCH (21:39)
[2018-04-09] MEDS: TRIAMCINOLONE ACET 0.1% OINT 15 GM TUBE TP SCH ×2 (10:07→21:39)
[2018-04-09] MEDS: NICOTINE 14 MG/24 HOURS TOPICAL PATCH TD SCH (10:07)
[2018-04-09] MEDS: PRENATAL VITAMINS W/ FOLIC ACID TABLET (FP) PO SCH (10:08)
[2018-04-09] MEDS: IBUPROFEN 400 MG TABLET (FP) PO PRN ×2 (10:08→21:41)
[2018-04-09] MEDS: DOLUTEGRAVIR SODIUM 50 MG PO SCH (10:09)
[2018-04-09] MEDS: EMTRICITABINE PO SCH (10:10)
[2018-04-09] MEDS: [UNRECOGNIZED DRUG - OTHER] PO SCH (10:10)
[2018-04-09] MEDS: traZODone HCL 50 MG TABLET (FP) PO SCH (21:38)
[2018-04-09] MEDS: THIAMINE HCL 100 MG TABLET (FP) PO SCH (21:38)
[2018-04-10] MEDS: DOLUTEGRAVIR SODIUM 50 MG PO SCH (10:07)
[2018-04-10] MEDS: [UNRECOGNIZED DRUG - OTHER] PO SCH (10:07)
[2018-04-10] MEDS: NICOTINE 14 MG/24 HOURS TOPICAL PATCH TD SCH (10:07)
[2018-04-10] MEDS: PRENATAL VITAMINS W/ FOLIC ACID TABLET (FP) PO SCH (10:07)
[2018-04-10] MEDS: TRIAMCINOLONE ACET 0.1% OINT 15 GM TUBE TP SCH ×2 (10:07→21:41)
[2018-04-10] MEDS: EMTRICITABINE PO SCH (10:07)
[2018-04-10] MEDS: IBUPROFEN 400 MG TABLET (FP) PO PRN (10:08)
[2018-04-10] MEDS: KETOCONAZOLE 2 % SHAMPOO 120 ML BOTTLE TP SCH (20:36)
[2018-04-10] MEDS: traZODone HCL 50 MG TABLET (FP) PO SCH (21:40)
[2018-04-10] MEDS: THIAMINE HCL 100 MG TABLET (FP) PO SCH (21:40)
[2018-04-11] MEDS: PRENATAL VITAMINS W/ FOLIC ACID TABLET (FP) PO SCH (10:15)
[2018-04-11] MEDS: NICOTINE 14 MG/24 HOURS TOPICAL PATCH TD SCH (10:15)
[2018-04-11] MEDS: TRIAMCINOLONE ACET 0.1% OINT 15 GM TUBE TP SCH ×2 (10:16→21:48)
[2018-04-11] MEDS: [UNRECOGNIZED DRUG - OTHER] PO SCH (10:18)
[2018-04-11] MEDS: EMTRICITABINE PO SCH (10:18)
[2018-04-11] MEDS: DOLUTEGRAVIR SODIUM 50 MG PO SCH (10:18)
[2018-04-11] MEDS: MAG HYDROX/AL HYDROX/SIMETH 30 ML UNIT-DOSE CUP PO PRN ×2 (10:19→21:48)
[2018-04-11] MEDS: THIAMINE HCL 100 MG TABLET (FP) PO SCH (21:36)
[2018-04-11] MEDS: traZODone HCL 50 MG TABLET (FP) PO SCH (21:36)
[2018-04-11] MEDS: IBUPROFEN 400 MG TABLET (FP) PO PRN (21:37)
[2018-04-12] MEDS: PRENATAL VITAMINS W/ FOLIC ACID TABLET (FP) PO SCH (10:33)
[2018-04-12] MEDS: NICOTINE 14 MG/24 HOURS TOPICAL PATCH TD SCH (10:33)
[2018-04-12] MEDS: TRIAMCINOLONE ACET 0.1% OINT 15 GM TUBE TP SCH ×2 (10:33→21:44)
[2018-04-12] MEDS: EMTRICITABINE PO SCH (10:34)
[2018-04-12] MEDS: [UNRECOGNIZED DRUG - OTHER] PO SCH (10:34)
[2018-04-12] MEDS: DOLUTEGRAVIR SODIUM 50 MG PO SCH (10:34)
[2018-04-12] MEDS: traZODone HCL 50 MG TABLET (FP) PO SCH (21:44)
[2018-04-12] MEDS: THIAMINE HCL 100 MG TABLET (FP) PO SCH (21:44)
[2018-04-13] MEDS: EMTRICITABINE PO SCH (10:01)
[2018-04-13] MEDS: PRENATAL VITAMINS W/ FOLIC ACID TABLET (FP) PO SCH (10:01)
[2018-04-13] MEDS: DOLUTEGRAVIR SODIUM 50 MG PO SCH (10:01)
[2018-04-13] MEDS: TRIAMCINOLONE ACET 0.1% OINT 15 GM TUBE TP SCH ×2 (10:01→21:48)
[2018-04-13] MEDS: NICOTINE 14 MG/24 HOURS TOPICAL PATCH TD SCH (10:01)
[2018-04-13] MEDS: [UNRECOGNIZED DRUG - OTHER] PO SCH (10:01)
[2018-04-13] MEDS: KETOCONAZOLE 2 % SHAMPOO 120 ML BOTTLE TP SCH (20:48)
[2018-04-13] MEDS: THIAMINE HCL 100 MG TABLET (FP) PO SCH (21:44)
[2018-04-13] MEDS: traZODone HCL 50 MG TABLET (FP) PO SCH (21:44)
[2018-04-14] MEDS: COLLOIDAL OATMEAL 1 BAR EACH TP PRN (07:30)
[2018-04-14] MEDS: PRENATAL VITAMINS W/ FOLIC ACID TABLET (FP) PO SCH (10:04)
[2018-04-14] MEDS: EMTRICITABINE PO SCH (10:06)
[2018-04-14] MEDS: DOLUTEGRAVIR SODIUM 50 MG PO SCH (10:06)
[2018-04-14] MEDS: [UNRECOGNIZED DRUG - OTHER] PO SCH (10:06)
[2018-04-14] MEDS: TRIAMCINOLONE ACET 0.1% OINT 15 GM TUBE TP SCH ×2 (11:40→21:55)
[2018-04-14] MEDS: NICOTINE 14 MG/24 HOURS TOPICAL PATCH TD SCH (11:41)
[2018-04-14] MEDS: traZODone HCL 50 MG TABLET (FP) PO SCH (21:54)
[2018-04-14] MEDS: THIAMINE HCL 100 MG TABLET (FP) PO SCH (21:54)
[2018-04-15] MEDS: EMTRICITABINE PO SCH (10:36)
[2018-04-15] MEDS: NICOTINE 14 MG/24 HOURS TOPICAL PATCH TD SCH (10:36)
[2018-04-15] MEDS: [UNRECOGNIZED DRUG - OTHER] PO SCH (10:36)
[2018-04-15] MEDS: DOLUTEGRAVIR SODIUM 50 MG PO SCH (10:36)
[2018-04-15] MEDS: PRENATAL VITAMINS W/ FOLIC ACID TABLET (FP) PO SCH (10:36)
[2018-04-15] MEDS: TRIAMCINOLONE ACET 0.1% OINT 15 GM TUBE TP SCH ×2 (10:37→21:51)
[2018-04-15] MEDS: THIAMINE HCL 100 MG TABLET (FP) PO SCH (21:51)
[2018-04-15] MEDS: traZODone HCL 50 MG TABLET (FP) PO SCH (21:51)
[2018-04-16] MEDS: PRENATAL VITAMINS W/ FOLIC ACID TABLET (FP) PO SCH (10:50)
[2018-04-16] MEDS: NICOTINE 14 MG/24 HOURS TOPICAL PATCH TD SCH (10:51)
[2018-04-16] MEDS: DOLUTEGRAVIR SODIUM 50 MG PO SCH (10:51)
[2018-04-16] MEDS: TRIAMCINOLONE ACET 0.1% OINT 15 GM TUBE TP SCH ×2 (10:51→21:56)
[2018-04-16] MEDS: [UNRECOGNIZED DRUG - OTHER] PO SCH (10:52)
[2018-04-16] MEDS: EMTRICITABINE PO SCH (10:52)
[2018-04-16] MEDS: hydrOXYzine PAMOATE 50 MG CAPSULE (FP) PO PRN (12:17)
[2018-04-16] MEDS: traZODone HCL 50 MG TABLET (FP) PO SCH (21:56)
[2018-04-16] MEDS: THIAMINE HCL 100 MG TABLET (FP) PO SCH (21:56)
[2018-04-17] MEDS: EMTRICITABINE PO SCH (10:32)
[2018-04-17] MEDS: [UNRECOGNIZED DRUG - OTHER] PO SCH (10:32)
[2018-04-17] MEDS: DOLUTEGRAVIR SODIUM 50 MG PO SCH (10:32)
[2018-04-17] MEDS: PRENATAL VITAMINS W/ FOLIC ACID TABLET (FP) PO SCH (10:32)
[2018-04-17] MEDS: TRIAMCINOLONE ACET 0.1% OINT 15 GM TUBE TP SCH ×2 (10:33→22:03)
[2018-04-17] MEDS: NICOTINE 14 MG/24 HOURS TOPICAL PATCH TD SCH (10:33)
[2018-04-17] MEDS: hydrOXYzine PAMOATE 50 MG CAPSULE (FP) PO PRN (15:49)
[2018-04-17] MEDS: traZODone HCL 50 MG TABLET (FP) PO SCH (21:48)
[2018-04-17] MEDS: THIAMINE HCL 100 MG TABLET (FP) PO SCH (21:48)
[2018-04-18] MEDS: TRIAMCINOLONE ACET 0.1% OINT 15 GM TUBE TP SCH ×2 (10:58→22:03)
[2018-04-18] MEDS: NICOTINE 14 MG/24 HOURS TOPICAL PATCH TD SCH (10:58)
[2018-04-18] MEDS: PRENATAL VITAMINS W/ FOLIC ACID TABLET (FP) PO SCH (10:58)
[2018-04-18] MEDS: [UNRECOGNIZED DRUG - OTHER] PO SCH (10:59)
[2018-04-18] MEDS: DOLUTEGRAVIR SODIUM 50 MG PO SCH (10:59)
[2018-04-18] MEDS: EMTRICITABINE PO SCH (10:59)
[2018-04-18] MEDS ORDERED: SELENIUM SULFIDE 2.5% LOTION 4 OZ. TP SCH (13:45)
[2018-04-18] MEDS ORDERED: KETOCONAZOLE 2% TP SCH (14:00)
[2018-04-18] MEDS: KETOCONAZOLE 2% TP SCH (15:31)
[2018-04-18] MEDS: traZODone HCL 50 MG TABLET (FP) PO SCH (22:02)
[2018-04-18] MEDS: MELATONIN 5 MG TABLETS PO PRN (22:03)
[2018-04-18] MEDS: THIAMINE HCL 100 MG TABLET (FP) PO SCH (22:03)
[2018-04-19] MEDS: COLLOIDAL OATMEAL 1 BAR EACH TP PRN (07:07)
[2018-04-19] MEDS: NICOTINE 14 MG/24 HOURS TOPICAL PATCH TD SCH (11:00)
[2018-04-19] MEDS: PRENATAL VITAMINS W/ FOLIC ACID TABLET (FP) PO SCH (11:12)
[2018-04-19] MEDS: EMTRICITABINE PO SCH (11:13)
[2018-04-19] MEDS: KETOCONAZOLE 2% TP SCH (11:13)
[2018-04-19] MEDS: [UNRECOGNIZED DRUG - OTHER] PO SCH (11:13)
[2018-04-19] MEDS: DOLUTEGRAVIR SODIUM 50 MG PO SCH (11:13)
[2018-04-19] MEDS: TRIAMCINOLONE ACET 0.1% OINT 15 GM TUBE TP SCH ×2 (11:15→22:00)
[2018-04-19] MEDS: MAG HYDROX/AL HYDROX/SIMETH 30 ML UNIT-DOSE CUP PO PRN (11:16)
[2018-04-19] MEDS: THIAMINE HCL 100 MG TABLET (FP) PO SCH (21:59)
[2018-04-19] MEDS: traZODone HCL 50 MG TABLET (FP) PO SCH (22:00)
[2018-04-20] MEDS: PRENATAL VITAMINS W/ FOLIC ACID TABLET (FP) PO SCH (10:36)
[2018-04-20] MEDS: EMTRICITABINE PO SCH (10:37)
[2018-04-20] MEDS: [UNRECOGNIZED DRUG - OTHER] PO SCH (10:37)
[2018-04-20] MEDS: DOLUTEGRAVIR SODIUM 50 MG PO SCH (10:37)
[2018-04-20] MEDS: NICOTINE 14 MG/24 HOURS TOPICAL PATCH TD SCH (10:37)
[2018-04-20] MEDS: KETOCONAZOLE 2% TP SCH (10:38)
[2018-04-20] MEDS: TRIAMCINOLONE ACET 0.1% OINT 15 GM TUBE TP SCH ×2 (10:38→22:03)
[2018-04-20] MEDS: hydrOXYzine PAMOATE 50 MG CAPSULE (FP) PO PRN (13:03)
[2018-04-20] MEDS: traZODone HCL 50 MG TABLET (FP) PO SCH (22:02)
[2018-04-20] MEDS: THIAMINE HCL 100 MG TABLET (FP) PO SCH (22:02)
[2018-04-21] MEDS: PRENATAL VITAMINS W/ FOLIC ACID TABLET (FP) PO SCH (10:28)
[2018-04-21] MEDS: DOLUTEGRAVIR SODIUM 50 MG PO SCH (10:29)
[2018-04-21] MEDS: [UNRECOGNIZED DRUG - OTHER] PO SCH (10:29)
[2018-04-21] MEDS: EMTRICITABINE PO SCH (10:29)
[2018-04-21] MEDS: NICOTINE 14 MG/24 HOURS TOPICAL PATCH TD SCH (10:30)
[2018-04-21] MEDS: KETOCONAZOLE 2% TP SCH (10:30)
[2018-04-21] MEDS: TRIAMCINOLONE ACET 0.1% OINT 15 GM TUBE TP SCH ×2 (10:30→22:16)
[2018-04-21] MEDS: THIAMINE HCL 100 MG TABLET (FP) PO SCH (22:16)
[2018-04-21] MEDS: traZODone HCL 50 MG TABLET (FP) PO SCH (22:16)
[2018-04-22] MEDS: EMTRICITABINE PO SCH (11:10)
[2018-04-22] MEDS: DOLUTEGRAVIR SODIUM 50 MG PO SCH (11:10)
[2018-04-22] MEDS: [UNRECOGNIZED DRUG - OTHER] PO SCH (11:10)
[2018-04-22] MEDS: NICOTINE 14 MG/24 HOURS TOPICAL PATCH TD SCH (11:11)
[2018-04-22] MEDS: PRENATAL VITAMINS W/ FOLIC ACID TABLET (FP) PO SCH (11:11)
[2018-04-22] MEDS: KETOCONAZOLE 2% TP SCH (11:12)
[2018-04-22] MEDS: TRIAMCINOLONE ACET 0.1% OINT 15 GM TUBE TP SCH ×2 (11:13→21:52)
[2018-04-22] MEDS: traZODone HCL 50 MG TABLET (FP) PO SCH (21:52)
[2018-04-22] MEDS: THIAMINE HCL 100 MG TABLET (FP) PO SCH (21:52)
[2018-04-23] MEDS: DOLUTEGRAVIR SODIUM 50 MG PO SCH (10:28)
[2018-04-23] MEDS: PRENATAL VITAMINS W/ FOLIC ACID TABLET (FP) PO SCH (10:29)
[2018-04-23] MEDS: NICOTINE 14 MG/24 HOURS TOPICAL PATCH TD SCH (10:29)
[2018-04-23] MEDS: [UNRECOGNIZED DRUG - OTHER] PO SCH (10:29)
[2018-04-23] MEDS: KETOCONAZOLE 2% TP SCH (10:29)
[2018-04-23] MEDS: EMTRICITABINE PO SCH (10:29)
[2018-04-23] MEDS: TRIAMCINOLONE ACET 0.1% OINT 15 GM TUBE TP SCH ×2 (10:30→22:10)
[2018-04-23] MEDS: traZODone HCL 50 MG TABLET (FP) PO SCH (21:59)
[2018-04-23] MEDS: THIAMINE HCL 100 MG TABLET (FP) PO SCH (21:59)
[2018-04-24] MEDS: PRENATAL VITAMINS W/ FOLIC ACID TABLET (FP) PO SCH (10:29)
[2018-04-24] MEDS: NICOTINE 14 MG/24 HOURS TOPICAL PATCH TD SCH (10:29)
[2018-04-24] MEDS: EMTRICITABINE PO SCH (10:29)
[2018-04-24] MEDS: TRIAMCINOLONE ACET 0.1% OINT 15 GM TUBE TP SCH ×2 (10:29→21:42)
[2018-04-24] MEDS: DOLUTEGRAVIR SODIUM 50 MG PO SCH (10:29)
[2018-04-24] MEDS: [UNRECOGNIZED DRUG - OTHER] PO SCH (10:29)
[2018-04-24] MEDS: KETOCONAZOLE 2% TP SCH (10:29)
[2018-04-24] MEDS: IBUPROFEN 400 MG TABLET (FP) PO PRN ×2 (14:26→21:42)
[2018-04-24] MEDS: THIAMINE HCL 100 MG TABLET (FP) PO SCH (21:42)
[2018-04-24] MEDS: traZODone HCL 50 MG TABLET (FP) PO SCH (21:42)
--- NOTE | 2018-04-25 10:04 | PN ---
[facility] Progress Note Note: LAST PPD RESULT 04/13/18. Vital Signs 04/25/18 04/25/18 03:30 07:16 Temperature 97.8 F Pulse Rate 72 Respiratory 18 18 Rate Blood Pressure 137/90 TUBERCULIN TESTING ORDERED TODAY.
[2018-04-25] MEDS: DOLUTEGRAVIR SODIUM 50 MG PO SCH (10:42)
[2018-04-25] MEDS: EMTRICITABINE PO SCH (10:42)
[2018-04-25] MEDS: NICOTINE 14 MG/24 HOURS TOPICAL PATCH TD SCH (10:42)
[2018-04-25] MEDS: PRENATAL VITAMINS W/ FOLIC ACID TABLET (FP) PO SCH (10:42)
[2018-04-25] MEDS: [UNRECOGNIZED DRUG - OTHER] PO SCH (10:42)
[2018-04-25] MEDS: KETOCONAZOLE 2% TP SCH (10:43)
[2018-04-25] MEDS: TRIAMCINOLONE ACET 0.1% OINT 15 GM TUBE TP SCH ×2 (10:43→21:53)
[2018-04-25] MEDS ORDERED: TUBERCULIN PPD 5 TU/0.1ML VIAL ID ONE (11:19)
[2018-04-25] MEDS: MAG HYDROX/AL HYDROX/SIMETH 30 ML UNIT-DOSE CUP PO PRN (19:05)
[2018-04-25] MEDS: traZODone HCL 50 MG TABLET (FP) PO SCH (21:53)
[2018-04-25] MEDS: THIAMINE HCL 100 MG TABLET (FP) PO SCH (21:53)
[2018-04-26] MEDS: PRENATAL VITAMINS W/ FOLIC ACID TABLET (FP) PO SCH (10:25)
[2018-04-26] MEDS: TRIAMCINOLONE ACET 0.1% OINT 15 GM TUBE TP SCH ×2 (10:25→22:00)
[2018-04-26] MEDS: EMTRICITABINE PO SCH (10:25)
[2018-04-26] MEDS: DOLUTEGRAVIR SODIUM 50 MG PO SCH (10:25)
[2018-04-26] MEDS: NICOTINE 14 MG/24 HOURS TOPICAL PATCH TD SCH (10:25)
[2018-04-26] MEDS: [UNRECOGNIZED DRUG - OTHER] PO SCH (10:25)
[2018-04-26] MEDS: KETOCONAZOLE 2% TP SCH (10:25)
[2018-04-26] MEDS: THIAMINE HCL 100 MG TABLET (FP) PO SCH (21:59)
[2018-04-26] MEDS: traZODone HCL 50 MG TABLET (FP) PO SCH (21:59)
[2018-04-27 07:00] VITALS: BP 117/79; PULSE 77; TEMP 97.8
[2018-04-27] MEDS: NICOTINE 14 MG/24 HOURS TOPICAL PATCH TD SCH (10:21)
[2018-04-27] MEDS: [UNRECOGNIZED DRUG - OTHER] PO SCH (10:22)
[2018-04-27] MEDS: PRENATAL VITAMINS W/ FOLIC ACID TABLET (FP) PO SCH (10:22)
[2018-04-27] MEDS: EMTRICITABINE PO SCH (10:22)
[2018-04-27] MEDS: DOLUTEGRAVIR SODIUM 50 MG PO SCH (10:22)
[2018-04-27] MEDS: KETOCONAZOLE 2% TP SCH (10:23)
[2018-04-27] MEDS: TRIAMCINOLONE ACET 0.1% OINT 15 GM TUBE TP SCH (10:24)
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
== END 2018-04-27 16:20 | disposition home or self-care (01) | DRG 772 ==
LOC: YASAS 15:23 → Y5N 19:36
PROVIDERS: ADMIT Psychiatry & Neurology Psychiatry; ATTEND Psychiatry & Neurology Psychiatry
PROC: HZ42ZZZ Group Counseling for Substance Abuse Treatment, Cognitive-Behavioral (ICD-10-PCS; principal; 2018-04-04)
DX: F10.20 Alcohol dependence, uncomplicated (principal); F14.20 Cocaine dependence, uncomplicated; F12.20 Cannabis dependence, uncomplicated; F17.210 Nicotine dependence, cigarettes, uncomplicated; F19.24 Other psychoactive substance dependence with psychoactive substance-induced mood disorder; F19.282 Other psychoactive substance dependence with psychoactive substance-induced sleep disorder; L30.8 Other specified dermatitis; L21.9 Seborrheic dermatitis, unspecified; Z21 Asymptomatic human immunodeficiency virus [HIV] infection status; M25.572 Pain in left ankle and joints of left foot; M25.571 Pain in right ankle and joints of right foot

== ENCOUNTER 2018-06-09 13:54 | Inpatient (IN) | payer OTHER ==
[2018-06-09 15:24] VITALS: BMI 31.7
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
[2018-06-09] MEDS ORDERED: MAGNESIUM CITRATE 300 ML BOTTLE PO PRN (17:25)
[2018-06-09] MEDS ORDERED: ACETAMINOPHEN 325 MG TABLET (FP) PO PRN (17:25)
[2018-06-09] MEDS ORDERED: LOPERAMIDE HCL 2 MG CAPSULE PO PRN (17:25)
[2018-06-09] MEDS ORDERED: MAGNESIUM HYDROX 2400MG/30ML ORAL SUSPENSION 30 ML CUP PO PRN (17:25)
[2018-06-09] MEDS ORDERED: P-EPHED 60MG/TRIPROLIDI 2.5MG TABLET PO PRN (17:25)
[2018-06-09] MEDS: chlordiazePOXIDE HCL 25 MG CAPSULE PO PRN (19:48)
[2018-06-09] MEDS ORDERED: DOLUTEGRAVIR SODIUM 50 MG TABLET (NON-FORMULARY) PO SCH (21:45)
[2018-06-09] MEDS ORDERED: MELATONIN 5 MG TABLETS PO PRN (22:00)
[2018-06-09] MEDS: THIAMINE HCL 100 MG TABLET (FP) PO SCH (23:01)
[2018-06-09] MEDS: SULFAMETHOXAZOLE/TRIMETHOPRIM 800MG/160MG D.S. TABLET PO SCH (23:01)
[2018-06-09] MEDS: chlordiazePOXIDE HCL 25 MG CAPSULE PO SCH (23:01)
[2018-06-09] MEDS: DOLUTEGRAVIR SODIUM 50 MG TABLET (NON-FORMULARY) PO SCH (23:02)
[2018-06-09] MEDS: EMTRICITABINE 200MG/TENOFOVIR 300MG PO SCH (23:02)
[2018-06-09] MEDS: IBUPROFEN 400 MG TABLET (FP) PO PRN (23:04)
[2018-06-10] MEDS: chlordiazePOXIDE HCL 25 MG CAPSULE PO SCH ×4 (05:34→22:11)
[2018-06-10] MEDS: guaiFENesin/D-METHORPHAN HB 10 ML UNIT-DOSE CUPS PO PRN ×2 (05:37→10:36)
[2018-06-10] MEDS: ALBUTEROL SO4 8 GM HFA INHALER IH PRN ×3 (05:39→17:40)
[2018-06-10] MEDS ORDERED: EMTRICITABINE 200MG/TENOFOVIR 300MG PO SCH ×2 (10:00→21:25)
[2018-06-10] MEDS ORDERED: DOLUTEGRAVIR SODIUM 50 MG TABLET (NON-FORMULARY) PO SCH ×2 (10:00→21:25)
[2018-06-10 10:10] LABS: ALBUMIN 3.8 g/dl (3.4-5.0); ALK PHOS 80 U/L (45-117); ANION GAP 8 MMOL/L (8-16); BILIRUBIN,TOTAL 0.8 mg/dL (0.2-1); BLOOD UREA NITROGEN 13 mg/dL (7-18); CALCIUM 8.8 mg/dL (8.5-10.1); CHLORIDE 100 mmol/L (98-107); CO2 27 mmol/L (21-32); CREATININE 0.9 mg/dL (0.55-1.3); GLUCOSE,RANDOM 104 mg/dL (74-106); POTASSIUM 3.9 mmol/L (3.5-5.1); SGOT/AST 72 U/L (15-37); SGPT/ALT 47 U/L (13-61); SODIUM 135 mmol/L (136-145); TOT PROT 7.1 g/dl (6.4-8.2)
[2018-06-10] MEDS: PRENATAL VITAMINS W/ FOLIC ACID TABLET (FP) PO SCH (10:30)
[2018-06-10] MEDS: SULFAMETHOXAZOLE/TRIMETHOPRIM 800MG/160MG D.S. TABLET PO SCH ×2 (10:31→22:12)
[2018-06-10] MEDS: EMTRICITABINE 200MG/TENOFOVIR 300MG PO SCH (10:32)
[2018-06-10 10:33] LABS: HEMATOCRIT 43.8 % (35.4-49); HEMOGLOBIN 15.1 GM/dL (11.7-16.9); MCHC 34.5 g/dl (32.0-35.9); MEAN CELL VOLUME 95.5 fl (80-96); MEAN PLT VOLUME 9.4 fl (7.5-11.1); PLATELET COUNT 189 K/MM3 (134-434); RBC 4.59 M/mm3 (4.00-5.60); RDW 13.4 % (11.9-15.9); WHITE BLOOD COUNT 5.7 K/mm3 (4.0-10.0)
[2018-06-10] MEDS: DOLUTEGRAVIR SODIUM 50 MG TABLET (NON-FORMULARY) PO SCH (10:33)
[2018-06-10] MEDS: MENTHOL/PHENOL 1 EACH UD MM PRN (10:38)
[2018-06-10] MEDS ORDERED: COLLOIDAL OATMEAL 1 BAR EACH TP PRN (11:25)
--- NOTE | 2018-06-10 11:52 | PN ---
[facility] CIWA - CIWA Score Nausea/Vomitin-No Nausea/No Vomiting Muscle Tremors: None Anxiety: 4-Mod. Anxious/Guarded Agitation: 3 Paroxysmal Sweats: 3 Orientation: 0-Oriented Tacttile Disturbances: 3-Moderate Itch/Numb/Burn Auditory Disturbances: 0-None Visual Disturbances: 1-Very Mild Sensitivity Headache: 0-None Present CIWA-Ar Total Score: 14 S Progress Note (SOAP) Subjective: Body Aches, Sweating, Anxious. Patient Reports History of Cold Sores and that he believes that he is getting one now on his lower lip (area feels like it is "itching and tingling." Patient Reports that he has used topical OTC product (Abreeva ?) in the past to treat the cold sores. Objective: PATIENT A & O X 3, OBSERVED AMBULATING ON UNIT. IN NO ACUTE DISTRESS. SMALL SWOLLEN AREA NOTED ON LOWER LIP. PATIENT DENIES CHEST PAIN. PATIENT DENIES KNOWN HISTORY OF HTN. PATIENT ALSO REPORTS INTERMITTENT BRIEF EPISODES OF DYSPNEA OVER LAST 1-2 WEEKS. PATIENT BELIEVES TO BE DUE TO FACT THAT HE HAS BEEN SMOKING CRACK COCAINE. PATIENT DENIES KNOWN HISTORY OF ASTHMA OR C.O.P.D. PATIENT NOTES THAT HE BELIEVES THAT DYSPNEA HAS BEEN STARTING TO SUBSIDE SINCE HE WAS ADMITTED TO DETOX AND STOPPED SMOKING CRACK COCAINE. PATIENT STARTED ON BACTRIM DS PO ON ADMISSION FOR POSSIBLE BRONCHIAL /RESPIRATORY INFECTION. LUNG SOUNDS AUSCULTATED CLEAR AND EQUAL BILATERALLY. 06/10/18 11:54 Vital Signs Temperature 98.0 F 06/10/18 09:26 Pulse Rate 120 H 06/10/18 09:26 Respiratory Rate 18 06/10/18 09:26 Blood Pressure 143/99 06/10/18 09:26 O2 Sat by Pulse Oximetry (%) Laboratory Tests 06/10/18 06/10/18 06/10/18 07:00 07:00 07:00 WBC 5.7 RBC 4.59 Hgb 15.1 Hct 43.8 MCV 95.5 MCH 33.0 MCHC 34.5 RDW 13.4 Plt Count 189 MPV 9.4 Sodium 135 L Potassium 3.9 Chloride 100 Carbon Dioxide 27 Anion Gap 8 BUN 13 Creatinine 0.9 Creat Clearance w eGFR > 60 Random Glucose 104 Calcium 8.8 Total Bilirubin 0.8 AST 72 H ALT 47 Alkaline Phosphatase 80 Total Protein 7.1 Albumin 3.8 RPR Titer Nonreactive LABS NOTED. 06/10/18 12:05 Assessment: 06/10/18 11:57 WITHDRAWAL SYMPTOMS. HERPES SIMPLEX OF LIP. Plan: CONTINUE DETOX. VALTREX, 100 MG PO BID X 2 DAYS FOR HERPES SIMPLEX OF LOWER LIP. NEBULIZER TREATMENT (DUONEB) FOR INTERMITTENT DYSPNEA. CONTINUE TO MONITOR BP.
[2018-06-10] MEDS ORDERED: valACYclovir HCL 500 MG TABLET (FP) PO ONE (12:08)
[2018-06-10] MEDS: FLUOCINONIDE 0.05% CREAM (15 GM TUBE) TP SCH ×2 (15:37→22:15)
[2018-06-10] MEDS: CLOTRIMAZOLE 1% CREAM 15 GM TUBE TP SCH ×2 (15:38→22:15)
[2018-06-10] MEDS: CYCLOBENZAPRINE HCL 10 MG TABLET (FP) PO PRN (17:25)
[2018-06-10] MEDS: ALBUTEROL SO4 2.5/IPRATROPIUM 0.5 INH SOL 3 ML VIAL.NEB. NEB PRN (17:46)
[2018-06-10] MEDS: hydrOXYzine PAMOATE 50 MG CAPSULE (FP) PO PRN (22:11)
[2018-06-10] MEDS: THIAMINE HCL 100 MG TABLET (FP) PO SCH (22:12)
[2018-06-10] MEDS: valACYclovir HCL 500 MG TABLET (FP) PO SCH (22:14)
[2018-06-11] MEDS: chlordiazePOXIDE HCL 25 MG CAPSULE PO SCH ×3 (06:10→17:50)
[2018-06-11] MEDS: ALBUTEROL SO4 2.5/IPRATROPIUM 0.5 INH SOL 3 ML VIAL.NEB. NEB PRN ×3 (06:14→18:30)
[2018-06-11] MEDS: guaiFENesin/D-METHORPHAN HB 10 ML UNIT-DOSE CUPS PO PRN ×2 (06:26→17:53)
[2018-06-11] MEDS: ALBUTEROL SO4 8 GM HFA INHALER IH PRN (09:53)
--- NOTE | 2018-06-11 09:54 | PN ---
[facility] CIWA - CIWA Score Nausea/Vomitin Muscle Tremors: 2 Anxiety: 2 Agitation: 3 Paroxysmal Sweats: 1-Minimal Palms Moist Orientation: 0-Oriented Tacttile Disturbances: 1-Very Mild Itch/Numbness Auditory Disturbances: 1-Very Mild Visual Disturbances: 0-None Headache: 2-Mild CIWA-Ar Total Score: 14 [facility] Progress Note (SOAP) Subjective: alert,irritable,anxious,interrupted sleep,coughing,expiratory wheezing, Objective: 06/11/18 09:58 Vital Signs Temperature 97.3 F L 06/11/18 09:33 Pulse Rate 117 H 06/11/18 09:33 Respiratory Rate 18 06/11/18 09:33 Blood Pressure 108/58 L 06/11/18 09:33 O2 Sat by Pulse Oximetry (%) Assessment: 06/11/18 09:58 withdrawal symptom acute exacerbation of asthma 06/11/18 09:59 Plan: continue detox,acute exacerbation of asthma,r/o pneumonia,to er for evaluation
[2018-06-11] MEDS: SULFAMETHOXAZOLE/TRIMETHOPRIM 800MG/160MG D.S. TABLET PO SCH ×2 (10:10→22:06)
[2018-06-11] MEDS: valACYclovir HCL 500 MG TABLET (FP) PO SCH ×2 (10:10→22:08)
[2018-06-11] MEDS: PRENATAL VITAMINS W/ FOLIC ACID TABLET (FP) PO SCH (10:10)
--- NOTE | 2018-06-11 10:10 | PN ---
[facility] Progress Note Note: patient did not want to go to er for evaluation,signed refusal treatment, to continue present therapy,albuterol inhaler,duoneb nebulizer,continue bactrim ds 1 tab bid, zithromax ,start on prednisone taper,close monitoring
[2018-06-11] MEDS: CLOTRIMAZOLE 1% CREAM 15 GM TUBE TP SCH ×2 (10:11→22:54)
[2018-06-11] MEDS: FLUOCINONIDE 0.05% CREAM (15 GM TUBE) TP SCH ×2 (10:11→22:06)
[2018-06-11] MEDS: DOLUTEGRAVIR SODIUM 50 MG TABLET (NON-FORMULARY) PO SCH (10:12)
[2018-06-11] MEDS: EMTRICITABINE 200MG/TENOFOVIR 300MG PO SCH (10:12)
--- NOTE | 2018-06-11 10:19 | PN ---
[facility] Progress Note Note: patient changed his mind,wanted to be evaluated in er
--- NOTE | 2018-06-11 10:29 | PN ---
S Progress Note Note: endorsed to Dr Christopher Spaulding,to be transported by [facility]
[2018-06-11] MEDS ORDERED: predniSONE 20 MG TABLET (UD) PO ONE (10:30)
[2018-06-11] MEDS ORDERED: AZITHROMYCIN 500 MG TABLET PO ONE (10:30)
--- NOTE | 2018-06-11 11:28 | PN ---
S Progress Note Note: patient changed his mind again,did not want to go to er,signed refusal
[2018-06-11] MEDS ORDERED: KETOCONAZOLE 2 % SHAMPOO 120 ML BOTTLE TP SCH (12:00)
[2018-06-11] MEDS: IBUPROFEN 400 MG TABLET (FP) PO PRN (13:06)
[2018-06-11] MEDS: hydrOXYzine PAMOATE 50 MG CAPSULE (FP) PO PRN (13:06)
[2018-06-11] MEDS: CYCLOBENZAPRINE HCL 10 MG TABLET (FP) PO PRN (13:06)
[2018-06-11] MEDS: MAG HYDROX/AL HYDROX/SIMETH 30 ML UNIT-DOSE CUP PO PRN (17:54)
[2018-06-11] MEDS: chlordiazePOXIDE 5 MG CAPSULE PO SCH (22:06)
[2018-06-11] MEDS: THIAMINE HCL 100 MG TABLET (FP) PO SCH (22:06)
[2018-06-12] MEDS: ALBUTEROL SO4 2.5/IPRATROPIUM 0.5 INH SOL 3 ML VIAL.NEB. NEB PRN ×2 (02:51→12:58)
[2018-06-12] MEDS: MAG HYDROX/AL HYDROX/SIMETH 30 ML UNIT-DOSE CUP PO PRN ×2 (02:58→22:18)
[2018-06-12] MEDS: chlordiazePOXIDE HCL 25 MG CAPSULE PO PRN (02:58)
[2018-06-12] MEDS: chlordiazePOXIDE 5 MG CAPSULE PO SCH ×3 (06:01→17:51)
[2018-06-12] MEDS: guaiFENesin/D-METHORPHAN HB 10 ML UNIT-DOSE CUPS PO PRN ×2 (06:03→17:53)
[2018-06-12] MEDS ORDERED: AZITHROMYCIN 250 MG TABLET PO SCH (10:00)
[2018-06-12] MEDS ORDERED: predniSONE 10 MG TABLET (UD) PO ONE (10:00)
[2018-06-12] MEDS: PRENATAL VITAMINS W/ FOLIC ACID TABLET (FP) PO SCH (10:32)
[2018-06-12] MEDS: SULFAMETHOXAZOLE/TRIMETHOPRIM 800MG/160MG D.S. TABLET PO SCH ×2 (10:32→22:12)
[2018-06-12] MEDS: DOLUTEGRAVIR SODIUM 50 MG TABLET (NON-FORMULARY) PO SCH (10:33)
[2018-06-12] MEDS: EMTRICITABINE 200MG/TENOFOVIR 300MG PO SCH (10:33)
[2018-06-12] MEDS: CLOTRIMAZOLE 1% CREAM 15 GM TUBE TP SCH ×2 (10:34→22:14)
[2018-06-12] MEDS: FLUOCINONIDE 0.05% CREAM (15 GM TUBE) TP SCH ×2 (10:34→22:14)
[2018-06-12] MEDS: hydrOXYzine PAMOATE 50 MG CAPSULE (FP) PO PRN ×2 (10:38→17:52)
--- NOTE | 2018-06-12 11:07 | PN ---
[facility] Progress Note (SOAP) Subjective: anxiety i need to see psych irritable Objective: 06/12/18 11:06 Vital Signs Temperature 98.3 F 06/12/18 09:25 Pulse Rate 105 H 06/12/18 09:25 Respiratory Rate 20 06/12/18 09:25 Blood Pressure 132/67 06/12/18 09:25 O2 Sat by Pulse Oximetry (%) aaox3 ambulating no acute distress Assessment: 06/12/18 11:07 withdrawal sx Plan: continue detox increase fluids psych ordered for consultation d/c in am
--- NOTE | 2018-06-12 15:38 | CONSULT ---
[facility] Psychiatric Consult - Data Date of interview: 06/12/18 Admission source: [facility] Identifying data: Came to [address] [place] [address] to conduct a psychiatric evaluation on this patient. As requested. Met with the patient in the Day room. Taken to office for interview. Mr Bergeron declines to speak with advertising writer. " I have already told them that I don't have psychiatric problems and I don't want to talk to psychiatrists ". Examination waived. Nursing staff is made aware.
[2018-06-12] MEDS: MENTHOL/PHENOL 1 EACH UD MM PRN (17:53)
[2018-06-12] MEDS: ALBUTEROL SO4 8 GM HFA INHALER IH PRN (18:16)
[2018-06-12] MEDS: THIAMINE HCL 100 MG TABLET (FP) PO SCH (22:12)
[2018-06-12] MEDS: chlordiazePOXIDE HCL 10 MG CAPSULE PO SCH (22:12)
[2018-06-13] MEDS: MAG HYDROX/AL HYDROX/SIMETH 30 ML UNIT-DOSE CUP PO PRN (03:00)
[2018-06-13] MEDS: ALBUTEROL SO4 2.5/IPRATROPIUM 0.5 INH SOL 3 ML VIAL.NEB. NEB PRN (06:02)
[2018-06-13] MEDS: chlordiazePOXIDE HCL 10 MG CAPSULE PO SCH (06:02)
[2018-06-13 07:07] VITALS: BP 111/72; PULSE 84; TEMP 96.1
[2018-06-13] MEDS: guaiFENesin/D-METHORPHAN HB 10 ML UNIT-DOSE CUPS PO PRN (07:44)
--- NOTE | 2018-06-13 09:04 | DS ---
[facility] Detox Discharge Summary Admission Date: 06/09/18 Discharge Date: 06/13/18 - History Present History: Alcohol Dependence, Cannabis Dependence, Cocaine Dependence - Physical Exam Results Vital Signs: Vital Signs Temperature 96.1 F L 06/13/18 07:07 Pulse Rate 84 06/13/18 07:07 Respiratory Rate 18 06/13/18 07:07 Blood Pressure 111/72 06/13/18 07:07 O2 Sat by Pulse Oximetry (%) - Treatment Hospital Course: Detox Protocol Followed, Detoxed Safely, Responded well, Discharged Condition Good, Rehab Referral Accepted - Medication Discharge Medications: Ambulatory Orders Dolutegravir Sodium [Tivicay] 50 mg PO DAILY 06/09/18 Dolutegravir Sodium [Tivicay] 50 mg PO DAILY 06/09/18 Emtricitabine/Tenofovir (Tdf) [Truvada 200 mg-300 mg Tablet] 1 each PO DAILY 06/25 Ketoconazole 2% Shampoo [Nizoral 2% Shampoo -] 1 applic TP WEEKLY 06/09/18 traZODone HCL [Trazodone HCl] 50 mg PO HS 06/09/18 Albuterol Sulfate Inhaler - [Ventolin HFA Inhaler -] 2 puff IH Q4H PRN #1 inhaler 06/13/18 Azithromycin [Zithromax 250mg Tablets -] 250 mg PO DAILY #5 tablet 06/13/18 Clotrimazole [Lotrimin -] 1 applic TP BID #1 tube 06/13/18 Sulfamethoxazole/Trimethoprim [Bactrim DS -] 1 each PO BID #90 tablet 06/13/18 predniSONE [Deltasone -] 5 mg PO DAILY #1 tablet 06/13/18 predniSONE [Deltasone -] 10 mg PO ASDIR #1 tab 06/13/18 - Diagnosis (1) Alcohol dependence with uncomplicated withdrawal Current Visit: Yes Status: Chronic (2) Asthmatic bronchitis Current Visit: Yes Status: Acute Qualifiers: Asthma severity: moderate Asthma complication type: uncomplicated (3) Herpes simplex Current Visit: Yes Status: Chronic (4) Bilateral ankle pain Current Visit: No Status: Acute (5) Cannabis abuse, uncomplicated Current Visit: Yes Status: Chronic (6) Cocaine dependence Current Visit: Yes Status: Chronic Qualifiers: Substance use status: uncomplicated (7) Cocaine dependence, uncomplicated Current Visit: Yes Status: Chronic (8) History of abdominal surgery Current Visit: No Status: Acute (9) Insomnia Current Visit: Yes Status: Chronic Qualifiers: Insomnia type: primary Qualified Code(s): F51.01 - Primary insomnia (10) Methamphetamine abuse Current Visit: Yes Status: Acute (11) Nicotine dependence Current Visit: Yes Status: Acute Qualifiers: Nicotine product type: cigarettes Substance use status: uncomplicated Qualified Code(s): F17.210 - Nicotine dependence, cigarettes, uncomplicated (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 (13) Substance abuse Current Visit: No Status: Acute (14) Substance induced mood disorder Current Visit: No Status: Acute (15) Weight loss Current Visit: No Status: Acute (16) Alcohol dependence with uncomplicated withdrawal Current Visit: Yes Status: Chronic (17) Bipolar II disorder Current Visit: No Status: Chronic (18) Cannabis dependence Current Visit: No Status: Chronic (19) Cannabis dependence Current Visit: Yes Status: Chronic (20) Cocaine dependence Current Visit: Yes Status: Chronic Qualifiers: Substance use status: uncomplicated Qualified Code(s): F14.20 - Cocaine dependence, uncomplicated (21) HIV (human immunodeficiency virus infection) Current Visit: Yes Status: Chronic Qualifiers: HIV symptom status: unspecified Qualified Code(s): B20 - Human immunodeficiency virus [HIV] disease (22) Nicotine dependence Current Visit: Yes Status: Chronic Qualifiers: Nicotine product type: cigarettes Substance use status: uncomplicated Qualified Code(s): F17.210 - Nicotine dependence, cigarettes, uncomplicated (23) Seborrheic dermatitis of scalp Current Visit: Yes Status: Chronic - AMA Did Patient Leave Against Medical Advice: No (referred to [facility])
[2018-06-13] MEDS ORDERED: predniSONE 20 MG TABLET (UD) PO ONE (10:00)
[2018-06-14] MEDS ORDERED: predniSONE 10 MG TABLET (UD) PO ONE (10:00)
[2018-06-15] MEDS ORDERED: predniSONE 5 MG TABLET (UD) PO ONE (10:00)
== END 2018-06-13 08:58 | disposition home or self-care (01) | DRG 774 ==
LOC: YASAS 13:54 → Y6N 17:56
PROVIDERS: ADMIT Surgery; ATTEND Surgery
PROC: HZ2ZZZZ Detoxification Services for Substance Abuse Treatment (ICD-10-PCS; principal; 2018-06-09)
DX: F10.230 Alcohol dependence with withdrawal, uncomplicated (principal); F14.20 Cocaine dependence, uncomplicated; F12.20 Cannabis dependence, uncomplicated; F15.10 Other stimulant abuse, uncomplicated; F17.210 Nicotine dependence, cigarettes, uncomplicated; F19.24 Other psychoactive substance dependence with psychoactive substance-induced mood disorder; F31.81 Bipolar II disorder; Z21 Asymptomatic human immunodeficiency virus [HIV] infection status; J45.901 Unspecified asthma with (acute) exacerbation; M25.571 Pain in right ankle and joints of right foot; M25.572 Pain in left ankle and joints of left foot; G47.00 Insomnia, unspecified; L21.9 Seborrheic dermatitis, unspecified; L30.8 Other specified dermatitis; B00.1 Herpesviral vesicular dermatitis; R00.0 Tachycardia, unspecified; Z88.0 Allergy status to penicillin
CPT/HCPCS: 36415; 80053; 85027; 86593; 94640

== ENCOUNTER 2019-03-01 11:41 | Inpatient (IN) | payer OTHER ==
[2019-03-01 12:42] VITALS: BMI 32.1
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
[2019-03-01] MEDS ORDERED: ACETAMINOPHEN 325 MG TABLET (FP) PO PRN (14:23)
[2019-03-01] MEDS ORDERED: BISMUTH SUBSALICYLATE 524 MG/30 ML UD PO PRN (14:23)
[2019-03-01] MEDS ORDERED: MAGNESIUM HYDROX 2400MG/30ML ORAL SUSPENSION 30 ML CUP PO PRN (14:23)
[2019-03-01] MEDS ORDERED: MAG HYDROX/AL HYDROX/SIMETH 30 ML UNIT-DOSE CUP PO PRN (14:23)
[2019-03-01] MEDS ORDERED: MENTHOL/PHENOL 1 EACH UD MM PRN (14:23)
[2019-03-01] MEDS ORDERED: hydrOXYzine PAMOATE 25 MG CAPSULE (FP) PO PRN (14:23)
[2019-03-01] MEDS ORDERED: LORazepam 1 MG TABLET PO PRN (14:23)
[2019-03-01] MEDS ORDERED: MAGNESIUM CITRATE 300 ML BOTTLE PO PRN (14:23)
[2019-03-01] MEDS: NICOTINE 21 MG/24 HOURS TOPICAL PATCH TD SCH (15:32)
[2019-03-01] MEDS: LORazepam 2 MG TABLET PO SCH ×2 (17:26→22:11)
[2019-03-01] MEDS: MELATONIN 5 MG TABLETS PO PRN (22:11)
[2019-03-01] MEDS: THIAMINE HCL 100 MG TABLET (FP) PO SCH (22:11)
[2019-03-02] MEDS: LORazepam 2 MG TABLET PO SCH ×4 (06:18→22:43)
[2019-03-02] MEDS: PRENATAL VITAMINS W/ FOLIC ACID TABLET (FP) PO SCH (10:19)
[2019-03-02] MEDS: PATIENT'S OWN MEDICATION (NON-FORMULARY) (Dolutegravir Sodium [Tivicay] 50 MG) PO SCH (10:19)
[2019-03-02] MEDS: PATIENT'S OWN MEDICATION (NON-FORMULARY) (Emtricitabine/Tenofovir (Tdf) [Truvada 200 Mg-30 PO SCH (10:19)
[2019-03-02] MEDS: NICOTINE 21 MG/24 HOURS TOPICAL PATCH TD SCH (10:20)
--- NOTE | 2019-03-02 11:04 | PN ---
S CIWA - CIWA Score Nausea/Vomitin-Mild Nausea/No Vomiting Muscle Tremors: 3 Anxiety: 3 Agitation: 1-Slight > Activity Paroxysmal Sweats: 2 Orientation: 1-Uncertain about Date Tacttile Disturbances: 1-Very Mild Itch/Numbness Auditory Disturbances: 0-None Visual Disturbances: 0-None Headache: 0-None Present CIWA-Ar Total Score: 12 [facility] Progress Note (SOAP) Subjective: 33 YEARS OLD MALE ADMITTED ON 03/01/19 FOR ALCOHOL WITHDRAWAL SX MANAGEMETN TREATED WITH [facility] DETOX REGIMEN LONG HISTORY OF PSORIASIS ELBOWS AND LEGS TRIAMCINOLON OINTMENT Objective: 03/02/19 11:07 Vital Signs Temperature 97 F L 03/02/19 09:28 Pulse Rate 94 H 03/02/19 09:28 Respiratory Rate 18 03/02/19 09:28 Blood Pressure 129/87 03/02/19 09:28 O2 Sat by Pulse Oximetry (%) Vital Signs 03/02/19 11:09 LAB PENDING Assessment: 03/02/19 11:10 ALCOHOL WITHDRAWAL SX Plan: CONTINUE [facility] DETOX REGIMEN
[2019-03-02 12:16] LABS: HEMATOCRIT 41.2 % (35.4-49); HEMOGLOBIN 13.9 GM/dL (11.7-16.9); MCH 32.6 pg (25.7-33.7); MCHC 33.8 g/dl (32.0-35.9); MEAN CELL VOLUME 96.3 fl (80-96); PLATELET COUNT 240 K/MM3 (134-434); RBC 4.27 M/mm3 (4.00-5.60); RDW 13.7 % (11.9-15.9); WHITE BLOOD COUNT 5.9 K/mm3 (4.0-10.0)
[2019-03-02 12:27] LABS: ALBUMIN 3.2 g/dl (3.4-5.0); BILIRUBIN,TOTAL 0.4 mg/dL (0.2-1); BLOOD UREA NITROGEN 14.5 mg/dL (7-18); CALCIUM 8.4 mg/dL (8.5-10.1); CREATININE 0.7 mg/dL (0.55-1.3); POTASSIUM 4.2 mmol/L (3.5-5.1); TOT PROT 6.2 g/dl (6.4-8.2)
[2019-03-02] MEDS: TRIAMCINOLONE ACET 0.1% OINT 15 GM TUBE TP SCH ×3 (15:31→22:43)
[2019-03-02] MEDS: ACETAMINOPHEN 325 MG TABLET (FP) PO PRN (16:46)
[2019-03-02] MEDS: THIAMINE HCL 100 MG TABLET (FP) PO SCH (22:43)
[2019-03-02] MEDS: MELATONIN 5 MG TABLETS PO PRN (22:44)
[2019-03-03] MEDS: LORazepam 1 MG TABLET PO SCH ×4 (05:34→22:07)
[2019-03-03] MEDS: PRENATAL VITAMINS W/ FOLIC ACID TABLET (FP) PO SCH (10:16)
[2019-03-03] MEDS: TRIAMCINOLONE ACET 0.1% OINT 15 GM TUBE TP SCH ×4 (10:16→22:07)
[2019-03-03] MEDS: PATIENT'S OWN MEDICATION (NON-FORMULARY) (Emtricitabine/Tenofovir (Tdf) [Truvada 200 Mg-30 PO SCH (10:17)
[2019-03-03] MEDS: PATIENT'S OWN MEDICATION (NON-FORMULARY) (Dolutegravir Sodium [Tivicay] 50 MG) PO SCH (10:17)
[2019-03-03] MEDS: NICOTINE 21 MG/24 HOURS TOPICAL PATCH TD SCH (10:21)
--- NOTE | 2019-03-03 10:24 | PN ---
[facility] CIWA - CIWA Score Nausea/Vomitin-Mild Nausea/No Vomiting Muscle Tremors: 3 Anxiety: 3 Agitation: 1-Slight > Activity Paroxysmal Sweats: 1-Minimal Palms Moist Orientation: 0-Oriented Tacttile Disturbances: 1-Very Mild Itch/Numbness Auditory Disturbances: 0-None Visual Disturbances: 0-None Headache: 1-Very Mild CIWA-Ar Total Score: 11 S Progress Note (SOAP) Subjective: 33 years old male admitted on 03/01/19 for alcohol withdrawal sx management treated with ativan detox regimen ate breakfast feeling ok today tolerated food and fluid well encourage to attend groups and meetings today discuss behavior and psychosocial therapies Objective: 03/03/19 10:25 Vital Signs Temperature 96.5 F L 03/03/19 09:16 Pulse Rate 94 H 03/03/19 09:16 Respiratory Rate 18 03/03/19 09:16 Blood Pressure 133/88 03/03/19 09:16 O2 Sat by Pulse Oximetry (%) Laboratory Last Values WBC 5.9 K/mm3 (4.0-10.0) 03/02/19 07:35 RBC 4.27 M/mm3 (4.00-5.60) 03/02/19 07:35 Hgb 13.9 GM/dL (11.7-16.9) 03/02/19 07:35 Hct 41.2 % (35.4-49) 03/02/19 07:35 MCV 96.3 fl (80-96) H 03/02/19 07:35 MCH 32.6 pg (25.7-33.7) 03/02/19 07:35 MCHC 33.8 g/dl (32.0-35.9) 03/02/19 07:35 RDW 13.7 % (11.9-15.9) 03/02/19 07:35 Plt Count 240 K/MM3 (134-434) D 03/02/19 07:35 MPV 9.0 fl (7.5-11.1) 03/02/19 07:35 Sodium 140 mmol/L (136-145) 03/02/19 07:35 Potassium 4.2 mmol/L (3.5-5.1) 03/02/19 07:35 Chloride 107 mmol/L (98-107) 03/02/19 07:35 Carbon Dioxide 29 mmol/L (21-32) 03/02/19 07:35 Anion Gap 4 MMOL/L (8-16) L 03/02/19 07:35 BUN 14.5 mg/dL (7-18) 03/02/19 07:35 Creatinine 0.7 mg/dL (0.55-1.3) 03/02/19 07:35 Est GFR (CKD-EPI)AfAm 141.70 03/02/19 07:35 Est GFR (CKD-EPI)NonAf 122.26 03/02/19 07:35 Random Glucose 81 mg/dL (74-106) 03/02/19 07:35 Calcium 8.4 mg/dL (8.5-10.1) L 03/02/19 07:35 Total Bilirubin 0.4 mg/dL (0.2-1) 03/02/19 07:35 AST 18 U/L (15-37) 03/02/19 07:35 ALT 29 U/L (13-61) 03/02/19 07:35 Alkaline Phosphatase 68 U/L (45-117) 03/02/19 07:35 Total Protein 6.2 g/dl (6.4-8.2) L 03/02/19 07:35 Albumin 3.2 g/dl (3.4-5.0) L 03/02/19 07:35 RPR Titer Nonreactive (NONREACTIVE) 03/02/19 07:35 lab ntoed Assessment: 03/03/19 10:25 alcohol withdrawal sx Plan: continue ativan detox regimen
[2019-03-03] MEDS ORDERED: AZITHROMYCIN 250 MG TABLET PO ONE (10:29)
[2019-03-03] MEDS: guaiFENesin 600 MG TABLET.ER (FP) PO SCH ×2 (10:44→22:07)
[2019-03-03] MEDS: SODIUM CHLORIDE NASAL SPRAY 44 ML BOTTLE NS SCH ×2 (14:25→22:07)
[2019-03-03 18:41] LABS: URINE APPEARANCE CLEAR; URINE BILIRUBIN NEGATIVE (NEGATIVE); URINE COLOR YELLOW; URINE GLUCOSE (UA) NEGATIVE (NEGATIVE); URINE KETONE NEGATIVE (NEGATIVE); URINE LEUK ESTERASE NEGATIVE (NEGATIVE); URINE NITRITE NEGATIVE (NEGATIVE); URINE PROTEIN NEGATIVE (NEGATIVE); URINE UROBILINOGEN 0.2 mg/dL (0.2-1.0)
[2019-03-03] MEDS ORDERED: ALBUTEROL SO4 8 GM HFA INHALER IH PRN (18:56)
[2019-03-03] MEDS: MELATONIN 5 MG TABLETS PO PRN (22:07)
[2019-03-03] MEDS: THIAMINE HCL 100 MG TABLET (FP) PO SCH (22:07)
[2019-03-04] MEDS ORDERED: LORazepam 0.5 MG TABLET PO PRN
[2019-03-04] MEDS: IBUPROFEN 400 MG TABLET (FP) PO PRN ×3 (04:32→22:02)
[2019-03-04] MEDS: LORazepam 0.5 MG TABLET PO SCH ×4 (04:32→22:03)
[2019-03-04] MEDS: SODIUM CHLORIDE NASAL SPRAY 44 ML BOTTLE NS SCH ×3 (06:45→22:03)
[2019-03-04] MEDS: TRIAMCINOLONE ACET 0.1% OINT 15 GM TUBE TP SCH ×4 (10:13→22:01)
[2019-03-04] MEDS: PATIENT'S OWN MEDICATION (NON-FORMULARY) (Dolutegravir Sodium [Tivicay] 50 MG) PO SCH (10:13)
[2019-03-04] MEDS: PATIENT'S OWN MEDICATION (NON-FORMULARY) (Emtricitabine/Tenofovir (Tdf) [Truvada 200 Mg-30 PO SCH (10:13)
[2019-03-04] MEDS: guaiFENesin 600 MG TABLET.ER (FP) PO SCH ×2 (10:14→22:03)
[2019-03-04] MEDS: NICOTINE 21 MG/24 HOURS TOPICAL PATCH TD SCH (10:14)
[2019-03-04] MEDS: PRENATAL VITAMINS W/ FOLIC ACID TABLET (FP) PO SCH (10:14)
[2019-03-04] MEDS: AZITHROMYCIN 250 MG TABLET PO SCH (10:15)
--- NOTE | 2019-03-04 13:23 | PN ---
S CIWA - CIWA Score Nausea/Vomitin-No Nausea/No Vomiting Muscle Tremors: 2 Anxiety: 2 Agitation: 2 Paroxysmal Sweats: No Perspiration Orientation: 0-Oriented Tacttile Disturbances: 0-None Auditory Disturbances: 0-None Visual Disturbances: 0-None Headache: 0-None Present CIWA-Ar Total Score: 6 BHS Progress Note (SOAP) Subjective: 33 years old male admitted on 03/01/19 for alcohol withdrawal sx management treaetd with ativan detox regimen feeling better less tremor mild anxiety sleep better at ngith Objective: 03/04/19 13:21 Vital Signs Temperature 96.8 F L 03/04/19 09:30 Pulse Rate 106 H 03/04/19 09:30 Respiratory Rate 20 03/04/19 09:30 Blood Pressure 126/82 03/04/19 09:30 O2 Sat by Pulse Oximetry (%) Laboratory Last Values WBC 5.9 K/mm3 (4.0-10.0) 03/02/19 07:35 RBC 4.27 M/mm3 (4.00-5.60) 03/02/19 07:35 Hgb 13.9 GM/dL (11.7-16.9) 03/02/19 07:35 Hct 41.2 % (35.4-49) 03/02/19 07:35 MCV 96.3 fl (80-96) H 03/02/19 07:35 MCH 32.6 pg (25.7-33.7) 03/02/19 07:35 MCHC 33.8 g/dl (32.0-35.9) 03/02/19 07:35 RDW 13.7 % (11.9-15.9) 03/02/19 07:35 Plt Count 240 K/MM3 (134-434) D 03/02/19 07:35 MPV 9.0 fl (7.5-11.1) 03/02/19 07:35 Sodium 140 mmol/L (136-145) 03/02/19 07:35 Potassium 4.2 mmol/L (3.5-5.1) 03/02/19 07:35 Chloride 107 mmol/L (98-107) 03/02/19 07:35 Carbon Dioxide 29 mmol/L (21-32) 03/02/19 07:35 Anion Gap 4 MMOL/L (8-16) L 03/02/19 07:35 BUN 14.5 mg/dL (7-18) 03/02/19 07:35 Creatinine 0.7 mg/dL (0.55-1.3) 03/02/19 07:35 Est GFR (CKD-EPI)AfAm 141.70 03/02/19 07:35 Est GFR (CKD-EPI)NonAf 122.26 03/02/19 07:35 Random Glucose 81 mg/dL (74-106) 03/02/19 07:35 Calcium 8.4 mg/dL (8.5-10.1) L 03/02/19 07:35 Total Bilirubin 0.4 mg/dL (0.2-1) 03/02/19 07:35 AST 18 U/L (15-37) 03/02/19 07:35 ALT 29 U/L (13-61) 03/02/19 07:35 Alkaline Phosphatase 68 U/L (45-117) 03/02/19 07:35 Total Protein 6.2 g/dl (6.4-8.2) L 03/02/19 07:35 Albumin 3.2 g/dl (3.4-5.0) L 03/02/19 07:35 Urine Color Yellow 03/03/19 12:30 Urine Appearance Clear 03/03/19 12:30 Urine pH 8.0 (5.0-8.0) 03/03/19 12:30 Ur Specific [place] 1.014 (1.010-1.035) 03/03/19 12:30 Urine Protein Negative (NEGATIVE) 03/03/19 12:30 Urine Glucose (UA) Negative (NEGATIVE) 03/03/19 12:30 Urine Ketones Negative (NEGATIVE) 03/03/19 12:30 Urine Blood Negative (NEGATIVE) 03/03/19 12:30 Urine Nitrite Negative (NEGATIVE) 03/03/19 12:30 Urine Bilirubin Negative (NEGATIVE) 03/03/19 12:30 Urine Urobilinogen 0.2 mg/dL (0.2-1.0) 03/03/19 12:30 Ur Leukocyte Esterase Negative (NEGATIVE) 03/03/19 12:30 RPR Titer Nonreactive (NONREACTIVE) 03/02/19 07:35 lab noted anxious about discharge tomorrow Assessment: 03/04/19 13:22 alcohol withdrawal sx Plan: continue ativan detox regimen
[2019-03-04] MEDS ORDERED: SELENIUM SULFIDE 2.25% 180 ML SHAMPOO TP SCH (13:30)
[2019-03-04] MEDS: ACETAMINOPHEN 325 MG TABLET (FP) PO PRN (13:47)
[2019-03-04] MEDS: SELENIUM SULFIDE 2.5% LOTION 4 OZ. TP SCH (15:33)
[2019-03-04] MEDS: LIDOCAINE VISCOUS 2% ORAL/TOP 20 ML UNIT-DOSE CUP MM PRN ×2 (15:33→18:45)
[2019-03-04] MEDS: METHOCARBAMOL 500 MG TABLET PO PRN (18:44)
[2019-03-04] MEDS: THIAMINE HCL 100 MG TABLET (FP) PO SCH (22:03)
[2019-03-05] MEDS ORDERED: LORazepam 0.5 MG TABLET PO ONE (05:00)
[2019-03-05] MEDS: METHOCARBAMOL 500 MG TABLET PO PRN ×2 (05:47→12:13)
[2019-03-05] MEDS: IBUPROFEN 400 MG TABLET (FP) PO PRN (05:47)
[2019-03-05] MEDS: SODIUM CHLORIDE NASAL SPRAY 44 ML BOTTLE NS SCH (05:49)
[2019-03-05] MEDS: LIDOCAINE VISCOUS 2% ORAL/TOP 20 ML UNIT-DOSE CUP MM PRN (05:50)
[2019-03-05 09:19] VITALS: BP 131/79; PULSE 97; TEMP 96.4
[2019-03-05] MEDS: PATIENT'S OWN MEDICATION (NON-FORMULARY) (Emtricitabine/Tenofovir (Tdf) [Truvada 200 Mg-30 PO SCH (10:32)
[2019-03-05] MEDS: PRENATAL VITAMINS W/ FOLIC ACID TABLET (FP) PO SCH (10:32)
[2019-03-05] MEDS: PATIENT'S OWN MEDICATION (NON-FORMULARY) (Dolutegravir Sodium [Tivicay] 50 MG) PO SCH (10:32)
[2019-03-05] MEDS: AZITHROMYCIN 250 MG TABLET PO SCH (10:32)
[2019-03-05] MEDS: TRIAMCINOLONE ACET 0.1% OINT 15 GM TUBE TP SCH (10:33)
[2019-03-05] MEDS: guaiFENesin 600 MG TABLET.ER (FP) PO SCH (10:33)
[2019-03-05] MEDS: SELENIUM SULFIDE 2.5% LOTION 4 OZ. TP SCH (10:34)
[2019-03-05] MEDS: NICOTINE 21 MG/24 HOURS TOPICAL PATCH TD SCH (10:34)
[2019-03-05] MEDS: ACETAMINOPHEN 325 MG TABLET (FP) PO PRN (10:35)
--- NOTE | 2019-03-05 11:12 | DS ---
[facility] Detox Discharge Summary Admission Date: 03/01/19 Discharge Date: 03/05/19 - History Present History: Alcohol Dependence Additional Comments: 33 years oldh male admitted on 03/01/19 for alcohol withdrawal sx management treated with ativan detox regimen patient is alert oriented x 3 cardiac s1s2 regular rate rhythm respiratory clear lung bilaterally on auscultation abdomen soft obese round no rebound tenderness - Physical Exam Results Vital Signs: Vital Signs Temperature 96.4 F L 03/05/19 09:18 Pulse Rate 97 H 03/05/19 09:18 Respiratory Rate 20 03/05/19 09:18 Blood Pressure 131/79 03/05/19 09:18 O2 Sat by Pulse Oximetry (%) Pertinent Admission Physical Exam Findings: alcohol withdrawal sx Laboratory Last Values WBC 5.9 K/mm3 (4.0-10.0) 03/02/19 07:35 RBC 4.27 M/mm3 (4.00-5.60) 03/02/19 07:35 Hgb 13.9 GM/dL (11.7-16.9) 03/02/19 07:35 Hct 41.2 % (35.4-49) 03/02/19 07:35 MCV 96.3 fl (80-96) H 03/02/19 07:35 MCH 32.6 pg (25.7-33.7) 03/02/19 07:35 MCHC 33.8 g/dl (32.0-35.9) 03/02/19 07:35 RDW 13.7 % (11.9-15.9) 03/02/19 07:35 Plt Count 240 K/MM3 (134-434) D 03/02/19 07:35 MPV 9.0 fl (7.5-11.1) 03/02/19 07:35 Sodium 140 mmol/L (136-145) 03/02/19 07:35 Potassium 4.2 mmol/L (3.5-5.1) 03/02/19 07:35 Chloride 107 mmol/L (98-107) 03/02/19 07:35 Carbon Dioxide 29 mmol/L (21-32) 03/02/19 07:35 Anion Gap 4 MMOL/L (8-16) L 03/02/19 07:35 BUN 14.5 mg/dL (7-18) 03/02/19 07:35 Creatinine 0.7 mg/dL (0.55-1.3) 03/02/19 07:35 Est GFR (CKD-EPI)AfAm 141.70 03/02/19 07:35 Est GFR (CKD-EPI)NonAf 122.26 03/02/19 07:35 Random Glucose 81 mg/dL (74-106) 03/02/19 07:35 Calcium 8.4 mg/dL (8.5-10.1) L 03/02/19 07:35 Total Bilirubin 0.4 mg/dL (0.2-1) 03/02/19 07:35 AST 18 U/L (15-37) 03/02/19 07:35 ALT 29 U/L (13-61) 03/02/19 07:35 Alkaline Phosphatase 68 U/L (45-117) 03/02/19 07:35 Total Protein 6.2 g/dl (6.4-8.2) L 03/02/19 07:35 Albumin 3.2 g/dl (3.4-5.0) L 03/02/19 07:35 Urine Color Yellow 03/03/19 12:30 Urine Appearance Clear 03/03/19 12:30 Urine pH 8.0 (5.0-8.0) 03/03/19 12:30 Ur Specific [place] 1.014 (1.010-1.035) 03/03/19 12:30 Urine Protein Negative (NEGATIVE) 03/03/19 12:30 Urine Glucose (UA) Negative (NEGATIVE) 03/03/19 12:30 Urine Ketones Negative (NEGATIVE) 03/03/19 12:30 Urine Blood Negative (NEGATIVE) 03/03/19 12:30 Urine Nitrite Negative (NEGATIVE) 03/03/19 12:30 Urine Bilirubin Negative (NEGATIVE) 03/03/19 12:30 Urine Urobilinogen 0.2 mg/dL (0.2-1.0) 03/03/19 12:30 Ur Leukocyte Esterase Negative (NEGATIVE) 03/03/19 12:30 RPR Titer Nonreactive (NONREACTIVE) 03/02/19 07:35 lab noted - Treatment Hospital Course: Detox Protocol Followed, Detoxed Safely, Responded well, Discharged Condition Good, Rehab Referral Accepted Patient [facility] - Medication Discharge Medications: Ambulatory Orders Dolutegravir Sodium [Tivicay] 50 mg PO DAILY 06/09/18 Emtricitabine/Tenofovir (Tdf) [Truvada 200 mg-300 mg Tablet] 1 each PO DAILY 06/25 traZODone HCL [Trazodone HCl] 50 mg PO HS 06/09/18 Albuterol Sulfate Inhaler - [Ventolin HFA Inhaler -] 2 puff IH Q4H PRN #1 inhaler 06/13/18 - Diagnosis (1) Eczema Current Visit: Yes Status: Chronic Qualifiers: Eczema type: unspecified Qualified Code(s): L30.9 - Dermatitis, unspecified (2) Alcohol dependence with uncomplicated intoxication Current Visit: Yes Status: Acute (3) Nicotine dependence Current Visit: Yes Status: Acute Qualifiers: Nicotine product type: cigarettes Substance use status: in withdrawal Qualified Code(s): F17.213 - Nicotine dependence, cigarettes, with withdrawal (4) HIV (human immunodeficiency virus infection) Current Visit: Yes Status: Chronic Qualifiers: HIV symptom status: asymptomatic Qualified Code(s): Z21 - Asymptomatic human immunodeficiency virus [HIV] infection status (5) Nicotine dependence Current Visit: Yes Status: Acute Qualifiers: Nicotine product type: cigarettes Substance use status: in withdrawal Qualified Code(s): F17.213 - Nicotine dependence, cigarettes, with withdrawal (6) Substance induced mood disorder Current Visit: Yes Status: Suspected (7) Alcohol dependence with uncomplicated withdrawal Current Visit: Yes Status: Acute - AMA Did Patient Leave Against Medical Advice: No CIWA Score - CIWA Score Nausea/Vomitin-No Nausea/No Vomiting Muscle Tremors: 1-None Visible, but [place] Anxiety: 1-Mildly Anxious Agitation: 1-Slight > Activity Paroxysmal Sweats: No Perspiration Orientation: 0-Oriented Tacttile Disturbances: 0-None Auditory Disturbances: 0-None Visual Disturbances: 0-None Headache: 0-None Present CIWA-Ar Total Score: 3
== END 2019-03-05 13:01 | disposition other institution (70) | DRG 774 ==
LOC: YASAS 11:41 → Y3N 14:38
PROVIDERS: ADMIT Allergy & Immunology; ATTEND Allergy & Immunology
PROC: HZ2ZZZZ Detoxification Services for Substance Abuse Treatment (ICD-10-PCS; principal; 2019-03-01)
DX: F10.230 Alcohol dependence with withdrawal, uncomplicated (principal); F10.220 Alcohol dependence with intoxication, uncomplicated; F14.20 Cocaine dependence, uncomplicated; F17.210 Nicotine dependence, cigarettes, uncomplicated; F19.24 Other psychoactive substance dependence with psychoactive substance-induced mood disorder; F32.9 Major depressive disorder, single episode, unspecified; F51.05 Insomnia due to other mental disorder; Z21 Asymptomatic human immunodeficiency virus [HIV] infection status; L30.9 Dermatitis, unspecified; Z98.890 Other specified postprocedural states; Z88.0 Allergy status to penicillin
CPT/HCPCS: 36415; 80053; 81003; 85027; 86593

== ENCOUNTER 2019-03-05 13:18 | Inpatient (IN) | payer OTHER ==
--- NOTE | 2019-03-05 11:17 | HP ---
[facility] Re[facility] Assess/Revision - Admission History Admitted to Rehab from: [facility] Date of Admission to Rehab: 03/05/19 - Findings Detox History & Physical reviewed: Yes Concur with findings: Yes Comments/Additional Findings: transferred from detox to rehab admission as per protocol Inpatient Rehab Admission - Rehab Decision to Admit Inpatient rehab admission?: Yes - Initial Determination Are CD services needed?: Yes Free of communicable disease: Yes Not in need of hospitalization: Yes - Rehab Admission Criteria Previous failed treatment: Yes Poor recovery environment: Yes Comorbidities: Yes Lacks judgement: Yes Patient is meeting Inpatient Rehab admission criteria:: Yes
[~2019-03-05 13:18] MED LIST: ACETAMINOPHEN 325 MG TABLET (FP) PO PRN; ALBUTEROL SO4 8 GM HFA INHALER IH PRN; LOPERAMIDE HCL 2 MG CAPSULE PO PRN; MAG HYDROX/AL HYDROX/SIMETH 30 ML UNIT-DOSE CUP PO PRN; MAGNESIUM CITRATE 300 ML BOTTLE PO PRN; MAGNESIUM HYDROX 2400MG/30ML ORAL SUSPENSION 30 ML CUP PO PRN; MENTHOL/PHENOL 1 EACH UD MM PRN; NICOTINE POLACRILEX 4 MG GUM BUC PRN; P-EPHED 60MG/TRIPROLIDI 2.5MG TABLET PO PRN; guaiFENesin 200 MG/10 ML 10 ML UNIT-DOSE CUPS PO PRN
[2019-03-05] MEDS: LIDOCAINE VISCOUS 2% ORAL/TOP 20 ML UNIT-DOSE CUP MM PRN ×2 (16:23→21:51)
[2019-03-05] MEDS: IBUPROFEN 400 MG TABLET (FP) PO PRN ×2 (16:23→21:51)
[2019-03-05] MEDS: SODIUM CHLORIDE NASAL SPRAY 44 ML BOTTLE NS SCH ×2 (16:24→21:49)
[2019-03-05] MEDS: KETOCONAZOLE 2 % SHAMPOO 120 ML BOTTLE TP SCH (16:39)
[2019-03-05] MEDS: guaiFENesin 600 MG TABLET.ER (FP) PO SCH (21:48)
[2019-03-05] MEDS: THIAMINE HCL 100 MG TABLET (FP) PO SCH (21:48)
[2019-03-05] MEDS: MELATONIN 5 MG TABLETS PO PRN (21:50)
[2019-03-06] MEDS: SODIUM CHLORIDE NASAL SPRAY 44 ML BOTTLE NS SCH ×3 (07:40→21:38)
[2019-03-06] MEDS: guaiFENesin 600 MG TABLET.ER (FP) PO SCH ×2 (10:13→21:37)
[2019-03-06] MEDS: PRENATAL VITAMINS W/ FOLIC ACID TABLET (FP) PO SCH (10:13)
[2019-03-06] MEDS: NICOTINE 21 MG/24 HOURS TOPICAL PATCH TD SCH (10:14)
[2019-03-06] MEDS: LIDOCAINE VISCOUS 2% ORAL/TOP 20 ML UNIT-DOSE CUP MM PRN ×3 (10:16→21:39)
[2019-03-06] MEDS: AZITHROMYCIN 250 MG TABLET PO SCH (11:00)
[2019-03-06] MEDS: EMTRICITABINE 200MG/TENOFOVIR 300MG PO SCH (15:04)
[2019-03-06] MEDS: DOLUTEGRAVIR SODIUM 50 MG TABLET (NON-FORMULARY) PO SCH (15:05)
[2019-03-06] MEDS: THIAMINE HCL 100 MG TABLET (FP) PO SCH (21:37)
[2019-03-06] MEDS: MELATONIN 5 MG TABLETS PO PRN (21:37)
[2019-03-06] MEDS: IBUPROFEN 400 MG TABLET (FP) PO PRN (21:39)
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
[2019-03-07] MEDS: LIDOCAINE VISCOUS 2% ORAL/TOP 20 ML UNIT-DOSE CUP MM PRN ×2 (07:26→21:44)
[2019-03-07] MEDS: SODIUM CHLORIDE NASAL SPRAY 44 ML BOTTLE NS SCH ×3 (07:27→21:48)
[2019-03-07] MEDS: EMTRICITABINE 200MG/TENOFOVIR 300MG PO SCH (07:27)
[2019-03-07] MEDS: DOLUTEGRAVIR SODIUM 50 MG TABLET (NON-FORMULARY) PO SCH (07:27)
[2019-03-07] MEDS: guaiFENesin 600 MG TABLET.ER (FP) PO SCH ×2 (10:03→21:40)
[2019-03-07] MEDS: NICOTINE 21 MG/24 HOURS TOPICAL PATCH TD SCH (10:45)
[2019-03-07] MEDS: PRENATAL VITAMINS W/ FOLIC ACID TABLET (FP) PO SCH (10:45)
[2019-03-07] MEDS: AZITHROMYCIN 250 MG TABLET PO SCH (10:47)
[2019-03-07] MEDS: THIAMINE HCL 100 MG TABLET (FP) PO SCH (21:40)
[2019-03-07] MEDS: SUVOREXANT 10 MG TABLET PO PRN (21:42)
[2019-03-07] MEDS: IBUPROFEN 400 MG TABLET (FP) PO PRN (23:39)
[2019-03-08] MEDS: DOLUTEGRAVIR SODIUM 50 MG TABLET (NON-FORMULARY) PO SCH (07:46)
[2019-03-08] MEDS: EMTRICITABINE 200MG/TENOFOVIR 300MG PO SCH (07:46)
[2019-03-08] MEDS: SODIUM CHLORIDE NASAL SPRAY 44 ML BOTTLE NS SCH ×3 (07:46→21:41)
[2019-03-08] MEDS: guaiFENesin 600 MG TABLET.ER (FP) PO SCH ×2 (10:27→21:40)
[2019-03-08] MEDS: PRENATAL VITAMINS W/ FOLIC ACID TABLET (FP) PO SCH (10:27)
[2019-03-08] MEDS: NICOTINE 21 MG/24 HOURS TOPICAL PATCH TD SCH (10:27)
[2019-03-08] MEDS: LIDOCAINE VISCOUS 2% ORAL/TOP 20 ML UNIT-DOSE CUP MM PRN ×2 (13:19→21:43)
[2019-03-08] MEDS: KETOCONAZOLE 2 % SHAMPOO 120 ML BOTTLE TP SCH (14:43)
[2019-03-08] MEDS: LIDOCAINE 5% TOPICAL PATCH TP SCH (15:29)
[2019-03-08] MEDS: LIDOCAINE PATCH REMOVAL MC SCH (21:40)
[2019-03-08] MEDS: THIAMINE HCL 100 MG TABLET (FP) PO SCH (21:40)
[2019-03-08] MEDS: SUVOREXANT 10 MG TABLET PO PRN (21:42)
[2019-03-09] MEDS: EMTRICITABINE 200MG/TENOFOVIR 300MG PO SCH (07:03)
[2019-03-09] MEDS: SODIUM CHLORIDE NASAL SPRAY 44 ML BOTTLE NS SCH ×3 (07:03→21:37)
[2019-03-09] MEDS: DOLUTEGRAVIR SODIUM 50 MG TABLET (NON-FORMULARY) PO SCH (07:03)
[2019-03-09] MEDS: LIDOCAINE VISCOUS 2% ORAL/TOP 20 ML UNIT-DOSE CUP MM PRN ×2 (07:06→19:02)
[2019-03-09] MEDS: guaiFENesin 600 MG TABLET.ER (FP) PO SCH ×2 (10:41→21:38)
[2019-03-09] MEDS: NICOTINE 21 MG/24 HOURS TOPICAL PATCH TD SCH (10:41)
[2019-03-09] MEDS: PRENATAL VITAMINS W/ FOLIC ACID TABLET (FP) PO SCH (10:41)
[2019-03-09] MEDS: LIDOCAINE 5% TOPICAL PATCH TP SCH (14:16)
[2019-03-09] MEDS: THIAMINE HCL 100 MG TABLET (FP) PO SCH (21:35)
[2019-03-09] MEDS: LIDOCAINE PATCH REMOVAL MC SCH (21:36)
[2019-03-09] MEDS: SUVOREXANT 10 MG TABLET PO PRN (21:36)
[2019-03-10] MEDS: SODIUM CHLORIDE NASAL SPRAY 44 ML BOTTLE NS SCH ×3 (06:58→21:40)
[2019-03-10] MEDS: DOLUTEGRAVIR SODIUM 50 MG TABLET (NON-FORMULARY) PO SCH (07:10)
[2019-03-10] MEDS: EMTRICITABINE 200MG/TENOFOVIR 300MG PO SCH (07:11)
[2019-03-10] MEDS: guaiFENesin 600 MG TABLET.ER (FP) PO SCH ×2 (09:59→21:37)
[2019-03-10] MEDS: LIDOCAINE 5% TOPICAL PATCH TP SCH (09:59)
[2019-03-10] MEDS: PRENATAL VITAMINS W/ FOLIC ACID TABLET (FP) PO SCH (09:59)
[2019-03-10] MEDS: NICOTINE 21 MG/24 HOURS TOPICAL PATCH TD SCH (09:59)
[2019-03-10] MEDS: LIDOCAINE VISCOUS 2% ORAL/TOP 20 ML UNIT-DOSE CUP MM PRN (13:25)
[2019-03-10] MEDS: THIAMINE HCL 100 MG TABLET (FP) PO SCH (21:38)
[2019-03-10] MEDS: SUVOREXANT 10 MG TABLET PO PRN (21:39)
[2019-03-10] MEDS: LIDOCAINE PATCH REMOVAL MC SCH (21:39)
[2019-03-11] MEDS: SODIUM CHLORIDE NASAL SPRAY 44 ML BOTTLE NS SCH ×3 (07:04→21:15)
[2019-03-11] MEDS: NICOTINE 21 MG/24 HOURS TOPICAL PATCH TD SCH (10:59)
[2019-03-11] MEDS: PRENATAL VITAMINS W/ FOLIC ACID TABLET (FP) PO SCH (10:59)
[2019-03-11] MEDS: LIDOCAINE 5% TOPICAL PATCH TP SCH (10:59)
[2019-03-11] MEDS: EMTRICITABINE 200MG/TENOFOVIR 300MG PO SCH (10:59)
[2019-03-11] MEDS: guaiFENesin 600 MG TABLET.ER (FP) PO SCH ×2 (10:59→21:15)
[2019-03-11] MEDS: DOLUTEGRAVIR SODIUM 50 MG TABLET (NON-FORMULARY) PO SCH (10:59)
[2019-03-11] MEDS: KETOCONAZOLE 2 % SHAMPOO 120 ML BOTTLE TP SCH (14:27)
[2019-03-11] MEDS: LIDOCAINE PATCH REMOVAL MC SCH (21:12)
[2019-03-11] MEDS: THIAMINE HCL 100 MG TABLET (FP) PO SCH (21:15)
[2019-03-12] MEDS: SODIUM CHLORIDE NASAL SPRAY 44 ML BOTTLE NS SCH ×3 (07:10→21:55)
[2019-03-12] MEDS: PRENATAL VITAMINS W/ FOLIC ACID TABLET (FP) PO SCH (11:16)
[2019-03-12] MEDS: EMTRICITABINE 200MG/TENOFOVIR 300MG PO SCH (11:16)
[2019-03-12] MEDS: NICOTINE 21 MG/24 HOURS TOPICAL PATCH TD SCH (11:16)
[2019-03-12] MEDS: guaiFENesin 600 MG TABLET.ER (FP) PO SCH ×2 (11:16→21:55)
[2019-03-12] MEDS: DOLUTEGRAVIR SODIUM 50 MG TABLET (NON-FORMULARY) PO SCH (11:16)
[2019-03-12] MEDS: LIDOCAINE 5% TOPICAL PATCH TP SCH (11:16)
[2019-03-12] MEDS: LIDOCAINE PATCH REMOVAL MC SCH (21:54)
[2019-03-12] MEDS: THIAMINE HCL 100 MG TABLET (FP) PO SCH (21:54)
[2019-03-13] MEDS: SODIUM CHLORIDE NASAL SPRAY 44 ML BOTTLE NS SCH ×3 (07:09→22:04)
[2019-03-13] MEDS: PRENATAL VITAMINS W/ FOLIC ACID TABLET (FP) PO SCH (10:44)
[2019-03-13] MEDS: DOLUTEGRAVIR SODIUM 50 MG TABLET (NON-FORMULARY) PO SCH (10:44)
[2019-03-13] MEDS: LIDOCAINE 5% TOPICAL PATCH TP SCH (10:44)
[2019-03-13] MEDS: EMTRICITABINE 200MG/TENOFOVIR 300MG PO SCH (10:44)
[2019-03-13] MEDS: NICOTINE 21 MG/24 HOURS TOPICAL PATCH TD SCH (10:45)
[2019-03-13] MEDS: guaiFENesin 600 MG TABLET.ER (FP) PO SCH ×2 (10:45→22:04)
--- NOTE | 2019-03-13 13:24 | PN ---
[facility] Progress Note Note: Nurse called to report that this patient is not compliant with Tivicay and Truvada time regimen as per hospital pharmacy protocol and wants to take it at 10:00 A.m instead of 8:00 A.M stating I take it anytime on the streets, it's not all that serious. We eat all the time and I don't want the vitamins, i'm already fat". Pt also c/o hx psoriasis and wants ointment for it because was on one but does not remember the name. Vital Signs - 24 hr 03/13/19 03/13/19 03/13/19 00:30 03:30 07:29 Respiratory 18 18 18 Rate skin: A/P Non adherent to dosing time Hx Psoriasis D/w pt the need to adhere to treatment regimen. d/c change dosing time of both antiretroviral drugs to 10:00A.M Triamcinolone 0.025% apply as directed
[2019-03-13] MEDS: LIDOCAINE VISCOUS 2% ORAL/TOP 20 ML UNIT-DOSE CUP MM PRN (22:01)
[2019-03-13] MEDS: TRIAMCINOLONE ACET 0.025% OINTMENT 15 GM TUBE TP SCH (22:02)
[2019-03-13] MEDS: LIDOCAINE PATCH REMOVAL MC SCH (22:03)
[2019-03-13] MEDS: THIAMINE HCL 100 MG TABLET (FP) PO SCH (22:03)
[2019-03-14] MEDS: SODIUM CHLORIDE NASAL SPRAY 44 ML BOTTLE NS SCH ×3 (07:42→22:38)
[2019-03-14] MEDS ORDERED: DOLUTEGRAVIR SODIUM 50 MG TABLET (NON-FORMULARY) PO SCH (10:00)
[2019-03-14] MEDS: LIDOCAINE 5% TOPICAL PATCH TP SCH (10:55)
[2019-03-14] MEDS: DOLUTEGRAVIR SODIUM 50 MG TABLET (NON-FORMULARY) PO SCH (10:56)
[2019-03-14] MEDS: EMTRICITABINE 200MG/TENOFOVIR 300MG PO SCH (10:56)
[2019-03-14] MEDS: TRIAMCINOLONE ACET 0.025% OINTMENT 15 GM TUBE TP SCH ×2 (10:57→22:37)
[2019-03-14] MEDS: guaiFENesin 600 MG TABLET.ER (FP) PO SCH ×2 (10:57→22:37)
[2019-03-14] MEDS: NICOTINE 21 MG/24 HOURS TOPICAL PATCH TD SCH (10:57)
[2019-03-14] MEDS: KETOCONAZOLE 2 % SHAMPOO 120 ML BOTTLE TP SCH (14:28)
[2019-03-14] MEDS: THIAMINE HCL 100 MG TABLET (FP) PO SCH (22:38)
[2019-03-14] MEDS: LIDOCAINE PATCH REMOVAL MC SCH (22:38)
[2019-03-15] MEDS: SODIUM CHLORIDE NASAL SPRAY 44 ML BOTTLE NS SCH ×3 (07:24→22:27)
[2019-03-15] MEDS: EMTRICITABINE 200MG/TENOFOVIR 300MG PO SCH (10:44)
[2019-03-15] MEDS: DOLUTEGRAVIR SODIUM 50 MG TABLET (NON-FORMULARY) PO SCH (10:44)
[2019-03-15] MEDS: guaiFENesin 600 MG TABLET.ER (FP) PO SCH ×2 (10:45→22:26)
[2019-03-15] MEDS: TRIAMCINOLONE ACET 0.025% OINTMENT 15 GM TUBE TP SCH ×2 (10:45→22:26)
[2019-03-15] MEDS: NICOTINE 21 MG/24 HOURS TOPICAL PATCH TD SCH (10:45)
[2019-03-15] MEDS: LIDOCAINE 5% TOPICAL PATCH TP SCH (10:45)
[2019-03-15] MEDS: LIDOCAINE PATCH REMOVAL MC SCH (22:26)
[2019-03-15] MEDS: THIAMINE HCL 100 MG TABLET (FP) PO SCH (22:27)
[2019-03-15] MEDS: LIDOCAINE VISCOUS 2% ORAL/TOP 20 ML UNIT-DOSE CUP MM PRN (22:54)
[2019-03-16] MEDS: SODIUM CHLORIDE NASAL SPRAY 44 ML BOTTLE NS SCH ×3 (07:00→22:21)
[2019-03-16] MEDS: EMTRICITABINE 200MG/TENOFOVIR 300MG PO SCH (10:36)
[2019-03-16] MEDS: LIDOCAINE 5% TOPICAL PATCH TP SCH (10:36)
[2019-03-16] MEDS: NICOTINE 21 MG/24 HOURS TOPICAL PATCH TD SCH (10:36)
[2019-03-16] MEDS: guaiFENesin 600 MG TABLET.ER (FP) PO SCH ×2 (10:36→22:21)
[2019-03-16] MEDS: DOLUTEGRAVIR SODIUM 50 MG TABLET (NON-FORMULARY) PO SCH (10:36)
[2019-03-16] MEDS: TRIAMCINOLONE ACET 0.025% OINTMENT 15 GM TUBE TP SCH ×2 (10:38→22:20)
[2019-03-16] MEDS: LIDOCAINE PATCH REMOVAL MC SCH (22:20)
[2019-03-16] MEDS: THIAMINE HCL 100 MG TABLET (FP) PO SCH (22:21)
[2019-03-17] MEDS: SODIUM CHLORIDE NASAL SPRAY 44 ML BOTTLE NS SCH ×3 (08:02→21:45)
[2019-03-17] MEDS: EMTRICITABINE 200MG/TENOFOVIR 300MG PO SCH (11:01)
[2019-03-17] MEDS: DOLUTEGRAVIR SODIUM 50 MG TABLET (NON-FORMULARY) PO SCH (11:01)
[2019-03-17] MEDS: NICOTINE 21 MG/24 HOURS TOPICAL PATCH TD SCH (11:02)
[2019-03-17] MEDS: LIDOCAINE 5% TOPICAL PATCH TP SCH (11:02)
[2019-03-17] MEDS: guaiFENesin 600 MG TABLET.ER (FP) PO SCH ×2 (11:02→21:45)
[2019-03-17] MEDS: TRIAMCINOLONE ACET 0.025% OINTMENT 15 GM TUBE TP SCH ×2 (11:03→21:45)
[2019-03-17] MEDS: LIDOCAINE VISCOUS 2% ORAL/TOP 20 ML UNIT-DOSE CUP MM PRN ×2 (11:29→21:46)
[2019-03-17] MEDS: KETOCONAZOLE 2 % SHAMPOO 120 ML BOTTLE TP SCH (13:57)
[2019-03-17] MEDS: LIDOCAINE PATCH REMOVAL MC SCH (21:45)
[2019-03-17] MEDS: THIAMINE HCL 100 MG TABLET (FP) PO SCH (21:45)
[2019-03-18] MEDS: SODIUM CHLORIDE NASAL SPRAY 44 ML BOTTLE NS SCH ×3 (07:09→21:55)
[2019-03-18] MEDS: TRIAMCINOLONE ACET 0.025% OINTMENT 15 GM TUBE TP SCH ×2 (10:21→21:55)
[2019-03-18] MEDS: DOLUTEGRAVIR SODIUM 50 MG TABLET (NON-FORMULARY) PO SCH (10:21)
[2019-03-18] MEDS: LIDOCAINE 5% TOPICAL PATCH TP SCH (10:21)
[2019-03-18] MEDS: EMTRICITABINE 200MG/TENOFOVIR 300MG PO SCH (10:22)
[2019-03-18] MEDS: NICOTINE 21 MG/24 HOURS TOPICAL PATCH TD SCH (10:22)
[2019-03-18] MEDS: guaiFENesin 600 MG TABLET.ER (FP) PO SCH ×2 (10:22→21:55)
--- NOTE | 2019-03-18 13:55 | DS ---
[facility] Rehab Discharge Summary - [facility] Rehab Discharge Summary Admission Date: 03/05/19 Discharge Date: 03/19/19 - History Present History: Alcohol dependence, Cannabis dependence, Cocaine dependence Additional Comments: Pt is a 33 y/o male with a hx of [place] admitted to rehab from [address] and scheduled to discharge on 03/19/19. Pt reports he has a primary care provider, Dr. Gandara at [place], [place]. Pt prefers to follow up at [email or web address] to enable him work. Pertinent Past History: Asthma HIV+ Eczema Mood disorder - Discharge Physical Exam Vital Signs: Vital Signs Temperature 97.3 F L 03/17/19 07:35 Pulse Rate 67 03/17/19 07:35 Respiratory Rate 18 03/18/19 07:54 Blood Pressure 131/83 03/17/19 07:35 O2 Sat by Pulse Oximetry (%) alert o x 3 nad oob ambulating with steady gait cardiac:s1 s2,rrr lungs:cta,norma abdomen:soft,+bs,nt,nd extremities/skin:no edema.full ROM/weight bearing;discoloration of great toe nails; skin intact Pertinent Admission Physical Exam Findings: Unremarkable - Treatment Discharge Condition: Discharge condition good Hospital Course: Rehabilitated safely and responded well - Medication Discharge Medications: Ambulatory Orders traZODone HCL [Trazodone HCl] 50 mg PO HS 06/09/18 Dolutegravir Sodium [Tivicay] 50 mg PO DAILY #30 tablet 03/18/19 Emtricitabine/Tenofovir (Tdf) [Truvada 200 mg-300 mg Tablet] 1 each PO DAILY # 30 tablet 03/18/19 - Medication-Assisted Treatment (MAT) Medication-Assisted Treatment (MAT): No - Discharge Instructions Diet, activity, other medical instructions: Diet:Regular Activity: oob ad gigi Other medical instructions:follow up with CD aftercare referral as recommended and scheduled Follow up with primary care provider Dr. Gandara within 1 week after discharge. - Diagnosis (1) Alcohol dependence Current Visit: Yes Status: Chronic Qualifiers: Substance use status: uncomplicated Qualified Code(s): F10.20 - Alcohol dependence, uncomplicated (2) Cocaine dependence Current Visit: Yes Status: Chronic Qualifiers: Substance use status: uncomplicated Qualified Code(s): F14.20 - Cocaine dependence, uncomplicated (3) Eczema Current Visit: Yes Status: Chronic Qualifiers: Eczema type: unspecified Qualified Code(s): L30.9 - Dermatitis, unspecified (4) Nicotine dependence Current Visit: Yes Status: Chronic Qualifiers: Nicotine product type: cigarettes Substance use status: uncomplicated Qualified Code(s): F17.210 - Nicotine dependence, cigarettes, uncomplicated (5) HIV (human immunodeficiency virus infection) Current Visit: Yes Status: Chronic Qualifiers: HIV symptom status: asymptomatic Qualified Code(s): Z21 - Asymptomatic human immunodeficiency virus [HIV] infection status (6) Methamphetamine abuse Current Visit: Yes Status: Chronic (7) Cannabis dependence Current Visit: Yes Status: Chronic (8) Seborrheic dermatitis of scalp Current Visit: Yes Status: Chronic - Follow-up Referral Minutes to complete discharge: 20 - AMA Did Patient Leave Against Medical Advice: No Additional Comments: [facility] Rx for Tivicay 1 tab po daily #30 and Truvada 1 tab po daily #30 electronically sent to [facility] for cloth picker after discharge. Pt instructed to follow up with PCP for further medication management.
[2019-03-18] MEDS: THIAMINE HCL 100 MG TABLET (FP) PO SCH (21:55)
[2019-03-18] MEDS: LIDOCAINE PATCH REMOVAL MC SCH (21:56)
[2019-03-19 07:03] VITALS: BP 112/78; PULSE 71; TEMP 98.7
[2019-03-19] MEDS: SODIUM CHLORIDE NASAL SPRAY 44 ML BOTTLE NS SCH (07:36)
[2019-03-19] MEDS: guaiFENesin 600 MG TABLET.ER (FP) PO SCH (09:03)
[2019-03-19] MEDS: EMTRICITABINE 200MG/TENOFOVIR 300MG PO SCH (09:03)
[2019-03-19] MEDS: NICOTINE 21 MG/24 HOURS TOPICAL PATCH TD SCH (09:04)
[2019-03-19] MEDS: LIDOCAINE 5% TOPICAL PATCH TP SCH (09:04)
[2019-03-19] MEDS: TRIAMCINOLONE ACET 0.025% OINTMENT 15 GM TUBE TP SCH (09:04)
[2019-03-19] MEDS: DOLUTEGRAVIR SODIUM 50 MG TABLET (NON-FORMULARY) PO SCH (09:04)
--- NOTE | 2019-03-19 12:05 | PN ---
S Progress Note Note: Pt left before being seen today. Pt was seen yesterday for discharge today and meds were sent to pharmacy- which pt picked up today
== END 2019-03-19 10:30 | disposition home or self-care (01) | DRG 772 ==
LOC: YASAS 13:18 → Y5N 13:19
PROVIDERS: ADMIT Neuromusculoskeletal Medicine & OMM; ATTEND Neuromusculoskeletal Medicine & OMM
PROC: HZ42ZZZ Group Counseling for Substance Abuse Treatment, Cognitive-Behavioral (ICD-10-PCS; principal; 2019-03-05)
DX: F10.20 Alcohol dependence, uncomplicated (principal); F14.20 Cocaine dependence, uncomplicated; F12.20 Cannabis dependence, uncomplicated; F15.10 Other stimulant abuse, uncomplicated; F17.210 Nicotine dependence, cigarettes, uncomplicated; F19.282 Other psychoactive substance dependence with psychoactive substance-induced sleep disorder; F19.24 Other psychoactive substance dependence with psychoactive substance-induced mood disorder; F39 Unspecified mood [affective] disorder; Z21 Asymptomatic human immunodeficiency virus [HIV] infection status; L21.9 Seborrheic dermatitis, unspecified; L30.9 Dermatitis, unspecified